=== PATIENT | male | born 1975 | race Caucasian/White ===

== ENCOUNTER 2016-12-14 03:58 | Inpatient (IN) ==
[2016-12-14] MEDS ORDERED: *HR* HYDROmorphone (PF) 1 MG/ML SYRINGE ONE (04:23)
[2016-12-14] MEDS ORDERED: 0.9 % Sodium Chloride 2,000 ML ONE (04:23)
[2016-12-14] MEDS ORDERED: Ondansetron 4 MG/2 ML VIAL ONE (04:23)
[2016-12-14] MEDS ORDERED: Ondansetron 4 MG/2 ML VIAL IVP ONE (04:30)
[2016-12-14] MEDS ORDERED: 0.9 % Sodium Chloride 1,000 ML IVC ONE (04:30)
[2016-12-14] MEDS ORDERED: *HR* HYDROmorphone (PF) 1 MG/ML SYRINGE IVP ONE (04:30)
--- NOTE | 2016-12-14 05:04 | Emergency Department Note ---
Disposition Clinical Impression: Small bowel obstruction Disposition: Admitted As Inpatient Condition: Good Referrals: NO,PCP [Primary Care Provider] - Time of Disposition: 06:42 Abdominal Pain HPI - General Stated Complaint: general Time Seen by Provider: 12/14/16 05:00 Source: patient Mode of arrival: ambulatory Limitations: no limitations Nursing Notes Reviewed: Yes Vital Signs Reviewed: Yes - History of Present Illness HPI Narrative: 41-year-old male with past medical history of gastric cancer status post resection, radiation, and the chemotherapy 8 years ago presents with 2 weeks of worsening nausea, bilious emesis, and inability to eat. This is associated with no bowel movement for the past week, subjective fever and chills. He has diffuse abdominal pain. He is concerned that he may have a recurrence of his cancer or a bowel obstruction. He denies any medication change, sick contacts, travel or immobilization. He denies any chest pain, shortness of breath, change in urination. He denies any rashes or edema. - Related Data Home Medications Medication Instructions Recorded Confirmed No Known Home Drugs 12/14/16 12/14/16 Allergies Allergy/AdvReac Type Severity Reaction Status Date / Time No Known Allergies Allergy Verified 12/14/16 06:48 All systems ED: reviewed and negative except as stated. Abdominal Pain PMH - Past Medical History Medical history: Reports: cancer Physical Exam - Head Head exam: atraumatic, normocephalic, normal inspection - Eye Eye exam: Present: normal appearance, PERRL, EOMI - ENT ENT exam: normal exam, normal oropharynx, mucous membranes moist - Neck Neck exam: Present: normal inspection, full ROM, trachea midline - Chest Chest inspection: Present: normal inspection, symmetric chest wall rise - Respiratory Respiratory exam: Clear to auscultation bilaterally without wheezes rales or rhonchi Cardiovascular Cardiovascular exam: Present: regular rate, normal rhythm, normal heart sounds - Abdominal Exam Cachectic with mild diffuse tenderness. Abdomen is not rigid. There is no rebound tenderness - Extremities Exam Extremities exam: Present: normal inspection, full ROM - Back Exam Back exam: Present: normal inspection, full ROM. Absent: tenderness, CVA tenderness (R), CVA tenderness (L) - Neurological Exam Neurological exam: Present: alert, oriented X3, CN II-XII intact - Psychiatric Psychiatric exam: Present: normal affect, normal mood - Skin Skin exam: Present: warm, dry, intact, normal color - General General appearance: cachectic Course - Reevaluation(s) Reevaluation #1: Patient has renal dysfunction with creatinine of 2.4. Patient has no prior history of renal dysfunction. He has not had any emesis in the department. CT scan shows distended small bowel consistent with proximal small bowel obstruction. Patient states that he would like to be admitted here rather than [facility]. Case was discussed with surgeon distributed generation project manager, Dr. Alonso. He will see patient in consult and requests hospitalist admission. No NG tube placed at this time, patient will need one if he begins vomiting. Time: 06:41 Reevaluation #2: Patient accepted by Dr. Do. He requests NG tube prior to admission. Time: 06:59 Abdominal Pain - Lab Data Result diagrams: 12/14/16 04:30 12/14/16 04:30 Lab Results 12/14/16 12/14/16 Range/Units 04:30 04:30 WBC 13.5 H (4.3-11.1) K/mcL RBC 5.68 H (4.19-5.50) M/mcL Hgb 16.7 (12.9-16.9) g/dL Hct 48.9 (37.5-50.1) % MCV 86.1 (83.0-100.0) fL MCH 29.4 (28.0-33.3) pg MCHC 34.2 (31.6-35.5) g/dL RDW 14.0 (11.5-14.5) % Plt Count 288 (140-400) K/mcL MPV 11.1 (9.4-12.4) fL Immature Gran % 0.3 (0-4) % Seg Neutrophils % 76.2 % Lymphocytes % 10.5 % Monocytes % 12.5 % Eosinophils % 0.1 % Basophils % 0.4 % Neutrophils # 10.3 H (1.6-8.9) K/mcL Lymphocytes # 1.4 (0.6-4.6) K/mcL Monocytes # 1.7 H (0.0-1.3) K/mcL Eosinophils # 0.0 (0.0-0.6) K/mcL Basophils # 0.1 (0.0-0.2) K/mcL Sodium 137 (136-145) mEq/L Potassium 4.4 (3.5-4.5) mEq/L Chloride 91 L (98-109) mEq/L Carbon Dioxide 21 (19-29) mEq/L BUN 64 H (8-26) mg/dL Creatinine 2.38 H (0.72-1.25) mg/dL Est GFR ( Amer) 37 L (> 60) Est GFR (Non-Af Amer) 30 L (> 60) BUN/Creatinine Ratio 27 H (6-26) Glucose 164 H (70-99) mg/dL Calculated Osmolality 306 H (280-300) Calcium 10.5 (8.6-10.8) mg/dL Total Bilirubin 0.6 (0.2-1.2) mg/dL Direct Bilirubin 0.3 (0.0-0.5) mg/dL Indirect Bilirubin 0.3 (0.0-1.2) mg/dL AST 12 (5-34) Units/L ALT < 6 (0-55) Units/L Alkaline Phosphatase 124 (38-126) Units/L Serum Total Protein 8.8 H (6.0-8.3) g/dL Albumin 4.6 (3.5-5.0) g/dL Globulin 4.2 H (2.4-3.5) g/dL Albumin/Globulin Ratio 1.1 (1.1-2.2) Lipase 12 (8-78) Units/L Attestation Statement - Attestation Attestation: I examined this patient and my medical decision-making was reviewed with the Resident Physician. I agree with the documented findings, disposition and treatment plan as described except to the extent set forth below. Cachectic pt w gastric cancer. Scaphoiod, tender abdomen, bitemporal wasting. Has hiccups, has had dark brown emesis that he thinks resembles blood. No BM in 5-6 days. Looks ill, dry. Work up initiated by Dr. Bedoya is appropriate.
[2016-12-14 05:10] LABS: Basophils # 0.1 K/mcL (0.0-0.2); Basophils % 0.4 %; Eosinophils % 0.1 %; Hematocrit 48.9 % (37.5-50.1); Hemoglobin 16.7 g/dL (12.9-16.9); Immature Granulocytes % 0.3 % (0-4); Lymphocytes # 1.4 K/mcL (0.6-4.6); Lymphocytes % 10.5 %; Mean Corpuscular HGB Conc 34.2 g/dL (31.6-35.5); Mean Corpuscular Hemoglobin 29.4 pg (28.0-33.3); Mean Corpuscular Volume 86.1 fL (83.0-100.0); Mean Platelet Volume 11.1 fL (9.4-12.4); Monocytes # 1.7 K/mcL (0.0-1.3); Monocytes % 12.5 %; Neutrophils # 10.3 K/mcL (1.6-8.9); Platelet Count 288 K/mcL (140-400); Red Blood Count 5.68 M/mcL (4.19-5.50); Segmented Neutrophils % 76.2 %
[2016-12-14 05:58] LABS: Alanine Aminotransferase < 6 Units/L (0-55); Albumin 4.6 g/dL (3.5-5.0); Albumin/Globulin Ratio 1.1 (1.1-2.2); Alkaline Phosphatase 124 Units/L (38-126); Aspartate Amino Transferase 12 Units/L (5-34); BUN/Creatinine Ratio 27 (6-26); Bilirubin,Direct 0.3 mg/dL (0.0-0.5); Bilirubin,Indirect 0.3 mg/dL (0.0-1.2); Bilirubin,Total 0.6 mg/dL (0.2-1.2); Blood Urea Nitrogen 64 mg/dL (8-26); Calcium 10.5 mg/dL (8.6-10.8); Carbon Dioxide 21 mEq/L (19-29); Chloride 91 mEq/L (98-109); Globulin 4.2 g/dL (2.4-3.5); Glucose 164 mg/dL (70-99); Lipase 12 Units/L (8-78); Osmolality,Calculated 306 (280-300); Potassium 4.4 mEq/L (3.5-4.5); Sodium 137 mEq/L (136-145); Total Protein 8.8 g/dL (6.0-8.3); eGFR For African Americans 37 (> 60); eGFR For Non-African Americans 30 (> 60)
[2016-12-14] MEDS ORDERED: Ondansetron 4 MG/2 ML VIAL IVP STA (06:27)
[2016-12-14] MEDS ORDERED: 0.9 % Sodium Chloride 1,000 ML IVC SCH (06:45)
[2016-12-14] MEDS ORDERED: Lidocaine Viscous Oral Soln 15 ML SOLUTION MM STA (06:57)
[2016-12-14] MEDS ORDERED: Lidocaine Jelly 11 ml Syringe TP ONE (07:00)
[2016-12-14] MEDS ORDERED: Naloxone 0.4 MG/ML INJ IVP PRN (08:57)
[2016-12-14] MEDS ORDERED: *HR* Morphine 2 MG/ML SYRINGE IVP PRN (08:57)
[2016-12-14] MEDS ORDERED: Ondansetron 4 MG/2 ML VIAL IVP PRN (08:57)
[2016-12-14] MEDS ORDERED: D5% in Water 1,000 ML IV PRN (09:03)
[2016-12-14] MEDS ORDERED: *HR* Dextrose 50 % in Water (Syg) 50 ML SYRINGE IVP PRN (09:03)
[2016-12-14] MEDS ORDERED: Dextrose Gel 15 GM PO PRN ×2 (09:03)
--- NOTE | 2016-12-14 09:09 | Internal Med History&Physical ---
Date of Encounter: 12/14/16 Time of Encounter: 08:30 Internal Medicine - H&P: HPI Chief complaint: Abdominal pain, nausea, vomiting x 2 weeks. Admitted From: Emergency Dept Plans for Post Hospital Care: Home History of present illness: Mr. Chand is a 41 year old male with medical history significant for gastric cancer status post partial gastrectomy, chemoradiation, presents with 2 weeks of progressive nausea, billious vomiting, inability to feed and diffuse abdominal pain. No fever or chills. His last bowel movement was 5 days ago, stool was of firm consistency. He pass flatus yesterday. No hematemsesis, no melena or hematochezia. He has had chronic intermittent weight loss the past 3 year since surgery. He has had chronic intermittent nausea and vomiting with inability to eat, occuring 3-6 times yearly the past 3 years. He now has erosion of his teeth from vomiting. No history of laparoscopic adhension release. No sick contacts, no recent travel, chest pain, shortness of breath, no new onset -urinary or neurological symptoms, no rash, no sore throat, no glandular enlargement, no leg swelling, leg cramps. He is concerned about recurrence of his cancer. Dr Alonso (surgeon) has been consulted by the ED physician. He will see patient in consult. N-G tube has been placed, but not connected to wall suction for now. He is FULL CODE as per discussion, he nominates his brother, Edward Chand as his NOK/POA. ROS: A 10-point ROS was performed, positives and relevant negatives are detailed , system-symptom not mentioned assumed negative unless otherwise stated. Family history: Father: stomach cancer, mother: DM2, HTN, sister: HTN: brother: DM2. O/E: Not in distress, not ill or toxic looking, cachectic. HEENT: Not pale, anicteric, afebrile, acyanotic. Trachea is central. Erosion of teeth, NG tube in the right nostril, mucoid material in the tube. Chest: Clinically clear Heart: RRR, HS1.2 no murmur Abdomen: Midline laparotomy scar, non-distended, soft, tender in the left upper quadrant and epigastrium, to a less extent in the LLQ, no masses. BS+ : no flank tenderness, no CVA tenderness, no suprapubic tenderness. DISBURSING OFFICER: aao x 3, no focal neurological deficits. Psychiatry: mood is good, affect is congruent, speech is normal, thought process is logical and goal-directed. Extremities: no pedal edema, normal pedal pulse, no calf tenderness. Lab Results 12/14/16 12/14/16 Range/Units 04:30 04:30 WBC 13.5 H (4.3-11.1) K/mcL RBC 5.68 H (4.19-5.50) M/mcL Hgb 16.7 (12.9-16.9) g/dL Hct 48.9 (37.5-50.1) % MCV 86.1 (83.0-100.0) fL MCH 29.4 (28.0-33.3) pg MCHC 34.2 (31.6-35.5) g/dL RDW 14.0 (11.5-14.5) % Plt Count 288 (140-400) K/mcL MPV 11.1 (9.4-12.4) fL Immature Gran % 0.3 (0-4) % Seg Neutrophils % 76.2 % Lymphocytes % 10.5 % Monocytes % 12.5 % Eosinophils % 0.1 % Basophils % 0.4 % Neutrophils # 10.3 H (1.6-8.9) K/mcL Lymphocytes # 1.4 (0.6-4.6) K/mcL Monocytes # 1.7 H (0.0-1.3) K/mcL Eosinophils # 0.0 (0.0-0.6) K/mcL Basophils # 0.1 (0.0-0.2) K/mcL Sodium 137 (136-145) mEq/L Potassium 4.4 (3.5-4.5) mEq/L Chloride 91 L (98-109) mEq/L Carbon Dioxide 21 (19-29) mEq/L BUN 64 H (8-26) mg/dL Creatinine 2.38 H (0.72-1.25) mg/dL Est GFR ( Amer) 37 L (> 60) Est GFR (Non-Af Amer) 30 L (> 60) BUN/Creatinine Ratio 27 H (6-26) Glucose 164 H (70-99) mg/dL Calculated Osmolality 306 H (280-300) Calcium 10.5 (8.6-10.8) mg/dL Total Bilirubin 0.6 (0.2-1.2) mg/dL Direct Bilirubin 0.3 (0.0-0.5) mg/dL Indirect Bilirubin 0.3 (0.0-1.2) mg/dL AST 12 (5-34) Units/L ALT < 6 (0-55) Units/L Alkaline Phosphatase 124 (38-126) Units/L Serum Total Protein 8.8 H (6.0-8.3) g/dL Albumin 4.6 (3.5-5.0) g/dL Globulin 4.2 H (2.4-3.5) g/dL Albumin/Globulin Ratio 1.1 (1.1-2.2) Lipase 12 (8-78) Units/L KUB: upper small bowel dilatation CT abdomen: duodenal and upper jejunal dilation. No distinct transition point. Likely due to adhesions. Punctate non-obstruction right renal calculi. 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 Conservative care for now, if hit fails, he may benefit from laparascopic adhensionlysis Though there is an obvious somatic cause for his vomiting, I worry that there could be also underlying psychosomatization related to loss of stomach. In view of loss of weight, obtain PT/OT evaluation to evaluation ambulation and gait. I discussed my assessment with the patient, she verbalized understanding and is agreeable to admission. Patient is high risk due to SBO and acute renal failure. Past Med Surg Social Fam HX - Past Medical History Medical history: cancer Internal Medicine - H&P: Meds No Known Home Drugs 12/14/16 [History] Allergies No Known Allergies Allergy (Verified 12/14/16 06:48) All Systems PM: A 10-system review of systems was performed and is negative for pertinent findings except as documented above in the HPI. - Constitutional Vitals: Temp Pulse Resp BP Pulse Ox 98.0 F 87 16 154/101 99 12/14/16 08:45 12/14/16 08:45 12/14/16 08:45 12/14/16 08:45 12/14/16 08:45 Internal Med - H&P Results - Labs CBC & Chem 7: 12/14/16 04:30 12/14/16 04:30 - Impressions ITS Impressions KUB X-Ray 12/14/16 07:29 IMPRESSION: Nasogastric tube remains intrathoracic. Recommend advancement approximately 14 cm and repeat radiograph to assess positioning. Dilated left upper quadrant small bowel, compatible with patient's history of obstruction. Results were called by the radiology call center. D/ / Alonso Monae MD / Alonso Monae MD Interpreting Provider: Alonso Monae MD
[2016-12-14 09:21] LABS: Magnesium 3.2 mg/dL (1.6-2.6); Phosphorous 6.5 mg/dL (2.3-4.7)
[2016-12-14] MEDS: Ringers Solution, Lactated 1,000 ML IVC SCH ×2 (11:44→22:30)
--- NOTE | 2016-12-14 12:23 | General Surgery Consult Note ---
Date of Encounter: 12/14/16 Time of Encounter: 11:40 Assessment and Plan (1) Small bowel obstruction Current Visit: Yes Status: Acute Small bowel follow through demonstrates no evidence of small bowel obstruction or ileus. Contrast reaches the colon within 30 minutes. The patient reported having a bowel movement after the dye was given through his NG tube. Advance the patient's diet as tolerated. Surgery will sign off at this time, thank you for involving us in this patient' s care, please feel free to contact us with any questions. History of Present Illness Consult date: 12/14/16 Reason for consult: other (Possible SBO) Requesting physician: Pineda Mccray History of present illness: This is a 41 year old male with PMH significant for previous gastric cancer status post partial gastrectomy, chemotherapy, and radiation 8 years ago. He presents with 2 weeks of nausea and vomiting that has progressed to becoming bilious. He states his last meal was approximately one week ago, but is not sure at this point. He reports having a bowel movement after small bowel follow- through imagining was performed today. He reports that he feels slightly improved after having a bowel movement. He denies any nausea at this time. He reports having similar episodes to his current symptoms several times per year. He has had unintentional weight loss over the pass 3 years, but is uncertain how much weight he has lost. Small bowel follow-through demonstrated no evidence of small bowel obstruction or ileus. Contrast was able to reach the colon within 30 minutes. Past Med Surg Social Fam HX - Past Medical History Medical history: cancer Psychiatric history: no psych history - Past Surgical History Surgical History: cholecystectomy, other (partial gastrectomy) - Social History Smoking Status: Current every day smoker Packs per day: 0.5-1 Smokeless Tobacco Status: No Alcohol use: rarely Drug use: none - Family History Father Hx Family Cardiac Disorders: Yes (hypertension) Hx Family Cancer: Yes (gastric) Medications and Allergies No Known Home Drugs 12/14/16 [History] Allergies No Known Allergies Allergy (Verified 12/14/16 06:48) Review of Systems All systems PM: A 10-system review of systems was performed and is negative for pertinent findings except as documented above in the HPI. - Constitutional anorexia, chills, fatigue, weight loss, no fever(s) - EENT Nose, mouth and throat: other (teeth breakdown) - Cardiovascular no chest pain, no dyspnea, no leg edema - Respiratory no cough, no hemoptysis - Gastrointestinal abdominal pain, nausea, vomiting, no melena - Genitourinary no dysuria - Integumentary no rash, no sores - Neurological no loss of vision General Surgery Exam Initial Vital Signs Resp BP 0 0/0 12/14/16 08:37 12/14/16 08:37 - General physical appearance no distress, cachectic - Eyes normal ocular movement - ENT normal mucosa, poor assisted - Neck trachea midline - Respiratory normal respiratory effort, clear to auscultation - Cardiovascular Cardiovascular exam: Present: tachycardia - Abdomen Abdomen general surgery: Present: bowel sounds present, soft, tender (diffuse) - Integumentary Integumentary general surgery: Present: warm and dry, other (well healed surgical scars present over the midline of the abdomen.) - Neurologic Present: CN 2-12 grossly intact - Musculoskeletal Present: normal posture - Psychiatric Psychiatric general surgery: Present: appropriate, oriented to person, oriented to place, oriented to time, speech is normal, memory intact Exam Initial Vital Signs Resp BP 0 0/0 12/14/16 08:37 12/14/16 08:37 Results - Labs 12/14/16 04:30 12/14/16 04:30 Abnormal lab results WBC 13.5 K/mcL (4.3-11.1) H 12/14/16 04:30 RBC 5.68 M/mcL (4.19-5.50) H 12/14/16 04:30 Neutrophils # 10.3 K/mcL (1.6-8.9) H 12/14/16 04:30 Monocytes # 1.7 K/mcL (0.0-1.3) H 12/14/16 04:30 Chloride 91 mEq/L (98-109) L 12/14/16 04:30 BUN 64 mg/dL (8-26) H 12/14/16 04:30 Creatinine 2.38 mg/dL (0.72-1.25) H 12/14/16 04:30 Est GFR ( Amer) 37 (> 60) L 12/14/16 04:30 Est GFR (Non-Af Amer) 30 (> 60) L 12/14/16 04:30 BUN/Creatinine Ratio 27 (6-26) H 12/14/16 04:30 Glucose 164 mg/dL (70-99) H 12/14/16 04:30 Calculated Osmolality 306 (280-300) H 12/14/16 04:30 Phosphorus 6.5 mg/dL (2.3-4.7) H 12/14/16 04:30 Magnesium 3.2 mg/dL (1.6-2.6) H 12/14/16 04:30 Serum Total Protein 8.8 g/dL (6.0-8.3) H 12/14/16 04:30 Globulin 4.2 g/dL (2.4-3.5) H 12/14/16 04:30 All other labs normal. Consult Discharge Plan - Plan Referrals: NO,PCP [Primary Care Provider] - - Attending Attestation I examined this patient and my medical decision-making was reviewed with the OUTSIDE MACHINIST SUPERVISOR/PA/Advanced Practice Nurse/Resident Physician. I agree with the documented findings, disposition and treatment plan as described except to the extent set forth below.
[2016-12-14] MEDS: Pantoprazole 40 MG VIAL IVP SCH (13:29)
[2016-12-14] MEDS: *HR* Heparin 5,000 UNIT/ML VIAL SQ SCH (18:14)
[2016-12-15] MEDS: Ringers Solution, Lactated 1,000 ML IVC SCH ×2 (04:10→09:01)
[2016-12-15 05:15] LABS: Basophils # 0.1 K/mcL (0.0-0.2); Basophils % 0.9 %; Eosinophils # 0.3 K/mcL (0.0-0.6); Eosinophils % 5.2 %; Hematocrit 35.8 % (37.5-50.1); Hemoglobin 12.1 g/dL (12.9-16.9); Immature Granulocytes % 0.2 % (0-4); Lymphocytes # 2.3 K/mcL (0.6-4.6); Lymphocytes % 39.8 %; Mean Corpuscular HGB Conc 33.8 g/dL (31.6-35.5); Mean Corpuscular Hemoglobin 29.5 pg (28.0-33.3); Mean Corpuscular Volume 87.3 fL (83.0-100.0); Mean Platelet Volume 11.2 fL (9.4-12.4); Monocytes % 17.9 %; Neutrophils # 2.1 K/mcL (1.6-8.9); Platelet Count 185 K/mcL (140-400); Red Cell Distribution Width 13.9 % (11.5-14.5)
[2016-12-15 05:31] LABS: BUN/Creatinine Ratio 33 (6-26); Blood Urea Nitrogen 35 mg/dL (8-26); Calcium 8.6 mg/dL (8.6-10.8); Carbon Dioxide 26 mEq/L (19-29); Chloride 101 mEq/L (98-109); Glucose 77 mg/dL (70-99); Osmolality,Calculated 289 (280-300); Potassium 3.9 mEq/L (3.5-4.5); Sodium 136 mEq/L (136-145); eGFR For African Americans > 60 (> 60); eGFR For Non-African Americans > 60 (> 60)
[2016-12-15] MEDS: *HR* Heparin 5,000 UNIT/ML VIAL SQ SCH (06:02)
--- NOTE | 2016-12-15 08:37 | Internal Med Progress Note ---
<Crispin Weeks - Last Filed: 12/15/16 09:53> Date of Encounter: 12/15/16 Time of Encounter: 08:32 - Assessment and plan (1) Nausea & vomiting Current Visit: Yes Status: Acute Assessment and plan: patient reports epsisodes of severe nausea and vomiting that occurs approximately every 2-3 months. Denies marijuana use. SBFT shows transit time of 30 minutes so this is not a SBO. May be secondary to gastroparesis? gastritis? I believe patient should get an EGD to evaluate given his history. I spoke with Dr. Alonso over the phone. we will set him up for follow up as outpatient for EGD. Qualifiers: Vomiting type: unspecified Qualified Code(s): R11.2 - Nausea with vomiting , unspecified (2) Early satiety Current Visit: Yes Status: Acute (3) Acute kidney injury Current Visit: Yes Status: Acute Assessment and plan: resolved. continue IV fluids (4) Dehydration Current Visit: Yes Status: Acute Assessment and plan: continue IV fluids until patient able to tolerate a full (5) Underweight Current Visit: Yes Status: Acute Assessment and plan: will add ensure to meals. (6) History of gastric cancer Current Visit: Yes Status: Acute (7) DVT prophylaxis Current Visit: Yes Status: Acute Assessment and plan: SQ heparin. - Subjective Interval history: Mr. Chand is a 1 y.o. male with pmh of gastric cancer that was diagnosed at the age of 23. He would undergo a partial gastredctomy, a gastrojejunostmy and chemtherapy and radiation. He states that he has had no endoscopy since that time. He states that he has had early satiety since that time. However he states that it has become more pronounced and that he can no longer even finish half of a sandwich. He states he has had weight loss. He is unsure of how much but states that his clothes do not fit him as well as they used to. He admits to night sweats for the past 3 months. He denies any dysphagia or odynophagia . Patient states that his Nausea and emesis are resolved and now he is hungry. He denies any abdominal pain at this time. He has no further complaints or concerns . - Constitutional Vitals: Temp Pulse Resp BP Pulse Ox 98.3 F 50 14 110/69 97 12/15/16 07:54 12/15/16 07:54 12/15/16 07:54 12/15/16 07:54 12/15/16 07:54 General appearance: Present: A&O X 3, pleasant, no acute distress, underweight - Head Head exam: Present: atraumatic, normal inspection, normocephalic - Eye Eye exam: Present: PERRL, conjuntiva pink, sclera anicteric Pupils: Present: PERRL - Neck Neck exam general surgery: Present: supple, trachea midline. Absent: lymphadenopathy - Respiratory Respiratory exam: Present: CTAB. Absent: accessory muscle use, rales, rhonchi, wheezes - Cardiovascular Cardiovascular exam: Present: RRR, +S1, +S2. Absent: diastolic murmur, gallop, rubs, systolic murmur - GI/Abdominal GI/Abdominal exam: Present: normal bowel sounds, soft, no peritoneal signs. Absent: distended, tenderness - Extremities Exam Extremities exam: Present: warm, radial pulses palpable and symetrical. Absent : calf tenderness, cyanotic, pedal edema - Skin Skin exam: Present: dry, intact Internal Medicine: Result - Labs CBC & Chem 7: 12/15/16 04:57 12/15/16 04:57 Labs: Short CBC 12/15/16 Range/Units 04:57 WBC 5.8 D (4.3-11.1) K/mcL Hgb 12.1 L D (12.9-16.9) g/dL Hct 35.8 L (37.5-50.1) % Plt Count 185 (140-400) K/mcL Neutrophils # 2.1 (1.6-8.9) K/mcL BMP 12/15/16 04:57 Sodium 136 Potassium 3.9 Chloride 101 Carbon Dioxide 26 BUN 35 H D Creatinine 1.06 D Glucose 77 Calcium 8.6 D Consult Discharge Plan - Plan Referrals: NO,PCP [Primary Care Provider] - Prescriptions: Mirtazapine [Remeron] 15 mg PO HS #30 tablet Omeprazole 20 mg PO DAILY 30 Days <Andrzej Hicks - Last Filed: 12/15/16 15:16> Date of Encounter: 12/15/16 - Assessment and plan (1) Acute kidney injury Current Visit: Yes Status: Acute (2) DVT prophylaxis Current Visit: Yes Status: Acute (3) Dehydration Current Visit: Yes Status: Acute (4) History of gastric cancer Current Visit: Yes Status: Acute (5) Nausea & vomiting Current Visit: Yes Status: Acute Qualifiers: Vomiting type: unspecified Qualified Code(s): R11.2 - Nausea with vomiting , unspecified (6) Small bowel obstruction Current Visit: Yes Status: Acute - Constitutional Vitals: Temp Pulse Resp BP Pulse Ox 97.4 F L 53 15 115/67 99 12/15/16 11:28 12/15/16 11:28 12/15/16 11:28 12/15/16 11:28 12/15/16 11:28 Internal Medicine: Result - Labs CBC & Chem 7: 12/15/16 04:57 12/15/16 04:57 Labs: Short CBC 12/15/16 Range/Units 04:57 WBC 5.8 D (4.3-11.1) K/mcL Hgb 12.1 L D (12.9-16.9) g/dL Hct 35.8 L (37.5-50.1) % Plt Count 185 (140-400) K/mcL Neutrophils # 2.1 (1.6-8.9) K/mcL BMP 12/15/16 04:57 Sodium 136 Potassium 3.9 Chloride 101 Carbon Dioxide 26 BUN 35 H D Creatinine 1.06 D Glucose 77 Calcium 8.6 D - Attending Attestation I examined this patient and my medical decision-making was reviewed with the FINANCIAL DIRECTOR/PA/Advanced Practice Nurse/Resident Physician. I agree with the documented findings, disposition and treatment plan as described except to the extent set forth below. Agree with Dr. Weeks. Outpatient follow up for possible EGD. D/W home today.
[2016-12-15] MEDS: Pantoprazole 40 MG VIAL IVP SCH (08:58)
--- NOTE | 2016-12-15 10:15 | Consult Note ---
Date of Encounter: 12/14/16 Time of Encounter: 15:45 Assessment & Recommendation (1) Mood disorder due to a general medical condition Current visit: Yes Status: Acute Assessment & Recommendation: 1. The patient to outpatient mental health's services for counseling and medication management. 2. I recommend starting the patient on mirtazapine 15 mg at bedtime to improve his appetite and as an antidepressant. Thank you for consultation. History of Present Illness Patient: new to practice Requesting Physician: Andrzej Hicks Reason for consult: Depression/somatization History of present illness: Mr. Chand is a 41 year old male admitted to medical for treatment evaluation of chronic nausea and vomiting following partial hysterectomy that was done 8 years ago to remove stomach cancer. Psychiatric consultation was requested for evaluation of depression and possible somatization. Patient denies any past psych history or treatment for depression he did not endorse any depressive symptoms he is focused on his chronic gastrointestinal problem namely nausea and vomiting and being underweight. Patient told me he used to be a furniture manager at [employer] and he has been on disability for several years and limited in his activities but denied any depression or hopelessness he was smiling and send those questions.. He was agreeable to explore counseling and medication to improve his functioning but he was concerned about insurance and his inability to afford treatment. CC: Andrzej Hicks Past Med Surg Social Fam HX - Past Medical History Medical history: cancer - Past Psychiatric History Psychiatric history: Reports: no psych history - Past Surgical History Surgical History: cholecystectomy, other (partial gastrectomy) - Social History Smoking Status: Current every day smoker Smokeless Tobacco Status: No Alcohol use: rarely Drug use: none - Family History Father Hx Family Cardiac Disorders: Yes (hypertension) Hx Family Cancer: Yes (gastric) Medications & Allergies No Known Home Drugs 12/14/16 [History] Allergies No Known Allergies Allergy (Verified 12/14/16 06:48) Mental Status Exam Level of alertness: Alert Patient appearance: Disheveled, Malodorous, Mal-nourished, Thin Behavior: calm, cooperative Psychomotor activity: Normal Eye contact: Maintains Eye Contact Mood description: Euthymic/stable Affect description: congruent with mood, full range Speech pattern: Normal rate, Normal rhythm, Normal tone Speech volume: Normal Thought process: Linear, Goal Oriented Thought content: No Suicidal ideation, No Homicidal ideation, No Overt delusions Perceptual disturbances: No Auditory hallucinations, No Visual hallucinations Attention span: Capable of Focused Attention Memory description: Grossly Intact Patient reliability: Reliable Historian Intelligence estimate: Average Judgment: Limited Insight: Partial Results - Vital Signs Vital signs: Temp Pulse Resp BP Pulse Ox 98.3 F 50 14 110/69 97 12/15/16 07:54 12/15/16 07:54 12/15/16 07:54 12/15/16 07:54 12/15/16 07:54 - Labs Labs: Laboratory Last Values WBC 5.8 K/mcL (4.3-11.1) D 12/15/16 04:57 RBC 4.10 M/mcL (4.19-5.50) L 12/15/16 04:57 Hgb 12.1 g/dL (12.9-16.9) L D 12/15/16 04:57 Hct 35.8 % (37.5-50.1) L 12/15/16 04:57 MCV 87.3 fL (83.0-100.0) 12/15/16 04:57 MCH 29.5 pg (28.0-33.3) 12/15/16 04:57 MCHC 33.8 g/dL (31.6-35.5) 12/15/16 04:57 RDW 13.9 % (11.5-14.5) 12/15/16 04:57 Plt Count 185 K/mcL (140-400) 12/15/16 04:57 MPV 11.2 fL (9.4-12.4) 12/15/16 04:57 Immature Gran % 0.2 % (0-4) 12/15/16 04:57 Seg Neutrophils % 36.0 % 12/15/16 04:57 Lymphocytes % 39.8 % 12/15/16 04:57 Monocytes % 17.9 % 12/15/16 04:57 Eosinophils % 5.2 % 12/15/16 04:57 Basophils % 0.9 % 12/15/16 04:57 Neutrophils # 2.1 K/mcL (1.6-8.9) 12/15/16 04:57 Lymphocytes # 2.3 K/mcL (0.6-4.6) 12/15/16 04:57 Monocytes # 1.0 K/mcL (0.0-1.3) 12/15/16 04:57 Eosinophils # 0.3 K/mcL (0.0-0.6) 12/15/16 04:57 Basophils # 0.1 K/mcL (0.0-0.2) 12/15/16 04:57 Sodium 136 mEq/L (136-145) 12/15/16 04:57 Potassium 3.9 mEq/L (3.5-4.5) 12/15/16 04:57 Chloride 101 mEq/L (98-109) 12/15/16 04:57 Carbon Dioxide 26 mEq/L (19-29) 12/15/16 04:57 BUN 35 mg/dL (8-26) H D 12/15/16 04:57 Creatinine 1.06 mg/dL (0.72-1.25) D 12/15/16 04:57 Est GFR ( Amer) > 60 (> 60) 12/15/16 04:57 Est GFR (Non-Af Amer) > 60 (> 60) 12/15/16 04:57 BUN/Creatinine Ratio 33 (6-26) H 12/15/16 04:57 Glucose 77 mg/dL (70-99) 12/15/16 04:57 POC Glucose 120 (58-89) H 12/14/16 11:38 Calculated Osmolality 289 (280-300) 12/15/16 04:57 Calcium 8.6 mg/dL (8.6-10.8) D 12/15/16 04:57 Phosphorus 6.5 mg/dL (2.3-4.7) H 12/14/16 04:30 Magnesium 3.2 mg/dL (1.6-2.6) H 12/14/16 04:30 Total Bilirubin 0.6 mg/dL (0.2-1.2) 12/14/16 04:30 Direct Bilirubin 0.3 mg/dL (0.0-0.5) 12/14/16 04:30 Indirect Bilirubin 0.3 mg/dL (0.0-1.2) 12/14/16 04:30 AST 12 Units/L (5-34) 12/14/16 04:30 ALT < 6 Units/L (0-55) 12/14/16 04:30 Alkaline Phosphatase 124 Units/L (38-126) 12/14/16 04:30 Serum Total Protein 8.8 g/dL (6.0-8.3) H 12/14/16 04:30 Albumin 4.6 g/dL (3.5-5.0) 12/14/16 04:30 Globulin 4.2 g/dL (2.4-3.5) H 12/14/16 04:30 Albumin/Globulin Ratio 1.1 (1.1-2.2) 12/14/16 04:30 Lipase 12 Units/L (8-78) 12/14/16 04:30 Consult Discharge Plan - Plan Referrals: NO,PCP [Primary Care Provider] -
[2016-12-15 11:32] VITALS: BP 115/67
--- NOTE | 2016-12-15 13:57 | Event Note ---
Date of Encounter: 12/15/16 Time of Encounter: 13:54 Patient was seen yesterday 12/14/16 due to concerns for a SBO. His testing revealed no evidence of SBO. However, the patient does have new onset early satiety, abdominal discomfort and a history of gastric cancer. His gastric cancer was 8 years ago. He states that he has not has a follow-up EGD since his gastric cancer was resected. Risks, benefits, alternatives and expected outcomes have been discussed with the patient and he is in agreement to proceed with an EGD as an outpatient. Notified [facility] schedule to work on scheduling with [facility] anesthesia.
--- NOTE | 2016-12-15 15:09 | Discharge Summary ---
Date of Encounter: 12/15/16 Time of Encounter: 15:07 - Discharge Diagnosis (1) Acute kidney injury Priority: Primary Status: Acute (2) DVT prophylaxis Priority: Secondary Status: Acute (3) Dehydration Priority: Secondary Status: Acute (4) History of gastric cancer Priority: Secondary Status: Acute (5) Nausea & vomiting Priority: Secondary Status: Acute Qualifiers: Vomiting type: unspecified Qualified Code(s): R11.2 - Nausea with vomiting , unspecified (6) Small bowel obstruction Priority: Secondary Status: Acute - Discharge Medications Prescriptions: Mirtazapine [Remeron] 15 mg PO HS #30 tablet Omeprazole 20 mg PO DAILY 30 Days Home Medications: Mirtazapine [Remeron] 15 mg PO HS #30 tablet 12/15/16 [Rx] Omeprazole 20 mg PO DAILY 30 Days 12/15/16 [Rx] Allergies/Adverse Reactions: Allergies No Known Allergies Allergy (Verified 12/14/16 06:48) Date of admission: 12/14/16 09:26 Primary care physician: PCP NO Consults: 12/14/16 09:53 Consult to Physical Therapy [CONS] Routine Comment: Evaluate, develop and implement POC OT [Consult to Occupational Therapy] [CONS] Routine Comment: Evaluate, develop and implement POC 12/14/16 11:36 Consult to Nutrition [CONS] Routine Comment: Consulting Provider: NUTRITION Reason for Dietary Consult: MST Score 12/14/16 12:50 Consult to Psychiatry [CONS] Routine Consulting Provider: Psychiatry Kasey Reason for Consult: evaluate for psychosomatitization/depression. Nausea, vomiting s/p partial gastrectomy. Call Completed: No Discharging clinician: Andrzej Hicks Anticipated date of discharge: 12/15/16 - Patient Status Disposition: Home, Self-Care Condition: Good Functional capacity at discharge: independent ambulation Overall status at discharge: patient is back to baseline - Discharge Instructions Follow Up With: NO,PCP [Primary Care Provider] - Forms: ED Satisfaction Letter - Diet and Activity Activity: increase activity as tolerated Diet: advance to your usual diet Interval History: Mr. Chand is a 41 year old male with medical history significant for gastric cancer status post partial gastrectomy, chemoradiation, presents with 2 weeks of progressive nausea, billious vomiting, inability to feed and diffuse abdominal pain. No fever or chills. His last bowel movement was 5 days ago, stool was of firm consistency. He pass flatus yesterday. No hematemsesis, no melena or hematochezia. He has had chronic intermittent weight loss the past 3 year since surgery. He has had chronic intermittent nausea and vomiting with inability to eat, occuring 3-6 times yearly the past 3 years. He now has erosion of his teeth from vomiting. No history of laparoscopic adhension release. No sick contacts, no recent travel, chest pain, shortness of breath, no new onset -urinary or neurological symptoms, no rash, no sore throat, no glandular enlargement, no leg swelling, leg cramps. He is concerned about recurrence of his cancer. Dr Alonso (surgeon) has been consulted by the ED physician. He will see patient in consult. N-G tube has been placed, but not connected to wall suction for now. He is FULL CODE as per discussion, he nominates his brother, Edward Chand as his NOK/POA. ROS: A 10-point ROS was performed, positives and relevant negatives are detailed , system-symptom not mentioned assumed negative unless otherwise stated. Family history: Father: stomach cancer, mother: DM2, HTN, sister: HTN: brother: DM2. Hospital course: Mr. Chnad is a 41 year old male. Acute kidney injury resolved. Denies marijuana use. Will start mirtazapine 15 mg at bedtime to improve his appetite and as an antidepressant. SBFT shows transit time of 30 minutes so this is not a SBO. May be secondary to gastroparesis or gastritis. I believe patient would benefit from an EGD to evaluate given his history.[facility] will set him up for follow up as outpatient for EGD. Will discharge him home today with omeprazole and mirtazapine. D/W patient. Smoking cessation was strongly recommended. Patient does not have health insurance. - Time Spent with Patient Total time spent providing and/or coordinating discharge services: Greater than 30 minutes - Constitutional Vitals: Temp Pulse Resp BP Pulse Ox 97.4 F L 53 15 115/67 99 12/15/16 11:28 12/15/16 11:28 12/15/16 11:28 12/15/16 11:28 12/15/16 11:28 General appearance: Present: A&O X 3, pleasant, no acute distress, underweight - Head Head exam: Present: atraumatic, normocephalic - Eye Eye exam: Present: PERRL, conjuntiva pink, sclera anicteric Pupils: Present: PERRL - Neck Neck exam general surgery: Present: supple, trachea midline. Absent: lymphadenopathy - Respiratory Respiratory exam: Present: CTAB. Absent: accessory muscle use, rales, rhonchi, wheezes - Cardiovascular Cardiovascular exam: Present: RRR, +S1, +S2. Absent: diastolic murmur, gallop, rubs, systolic murmur - GI/Abdominal GI/Abdominal exam: Present: normal bowel sounds, soft, no peritoneal signs. Absent: distended, tenderness - Extremities Exam Extremities exam: Present: warm, radial pulses palpable and symetrical. Absent : calf tenderness, cyanotic, pedal edema - Neurological Exam Neurological exam: Present: CN II-XII intact, oriented X3, no focal deficits. Absent: pronater drift, facial droop, speech deficit - Skin Skin exam: Present: dry, intact
[2016-12-15] MEDS ORDERED: FLU VACC QS2016-17 36MOS UP/PF 0.5 ML SYRINGE IM ONE (15:43)
== END 2016-12-15 16:10 | disposition home or self-care (01) | DRG 683 ==
LOC: 3ANU 04:37 → EMEROO 04:37 → 3ANU 08:03 → SUATTDRO 09:26
PROVIDERS: ADMIT Pediatrics; ATTEND Internal Medicine

== ENCOUNTER 2016-12-28 22:43 | Inpatient (IN) ==
[2016-12-28] MEDS ORDERED: 0.9 % Sodium Chloride 1,000 ML IVC ONE (23:00)
[2016-12-28] MEDS ORDERED: Ondansetron 4 MG/2 ML VIAL IVP ONE (23:00)
[2016-12-28 23:22] LABS: Basophils # 0.1 K/mcL (0.0-0.2); Basophils % 0.5 %; Eosinophils # 0.2 K/mcL (0.0-0.6); Eosinophils % 0.8 %; Hematocrit 47.2 % (37.5-50.1); Hemoglobin 15.2 g/dL (12.9-16.9); Immature Granulocytes % 0.5 % (0-4); Lymphocytes # 2.2 K/mcL (0.6-4.6); Lymphocytes % 10.8 %; Mean Corpuscular HGB Conc 32.2 g/dL (31.6-35.5); Mean Corpuscular Hemoglobin 28.7 pg (28.0-33.3); Mean Corpuscular Volume 89.2 fL (83.0-100.0); Mean Platelet Volume 9.5 fL (9.4-12.4); Monocytes # 1.2 K/mcL (0.0-1.3); Monocytes % 5.8 %; Neutrophils # 16.4 K/mcL (1.6-8.9); Platelet Count 344 K/mcL (140-400); Red Blood Count 5.29 M/mcL (4.19-5.50); Red Cell Distribution Width 14.7 % (11.5-14.5); Segmented Neutrophils % 81.6 %
[2016-12-28 23:39] LABS: Alanine Aminotransferase 10 Units/L (0-55); Albumin 3.9 g/dL (3.5-5.0); Alkaline Phosphatase 84 Units/L (38-126); Aspartate Amino Transferase 12 Units/L (5-34); BUN/Creatinine Ratio 15 (6-26); Bilirubin,Total 0.6 mg/dL (0.2-1.2); Blood Urea Nitrogen 19 mg/dL (8-26); Carbon Dioxide 27 mEq/L (19-29); Chloride 102 mEq/L (98-109); Glucose 137 mg/dL (70-99); Lipase 13 Units/L (8-78); Osmolality,Calculated 300 (280-300); Potassium 4.4 mEq/L (3.5-4.5); Sodium 143 mEq/L (136-145); Total Protein 7.9 g/dL (6.0-8.3); eGFR For African Americans > 60 (> 60); eGFR For Non-African Americans > 60 (> 60)
[2016-12-28] MEDS ORDERED: *HR* HYDROmorphone (PF) 1 MG/ML SYRINGE IVP ONE (23:47)
--- NOTE | 2016-12-28 23:48 | Emergency Department Note ---
Disposition Clinical Impression: Small bowel obstruction Disposition: Admitted As Inpatient Time of Disposition: 03:30 Nausea/Vomiting/Diarrhea HPI - General Chief complaint: ED Nausea/Vomiting/Diarrhea Stated complaint: Vomiting Time Seen by Provider: 12/28/16 23:00 Source: patient Mode of arrival: wheelchair Limitations: no limitations Nursing Notes Reviewed: Yes - History of Present Illness HPI Narrative: Patient presents to the ED with complaints of worsening N-V and malaise for the last 24 hours. He has a history of stomach cancer x9 years ago, with chemo and radiation in [place]. He states 2 weeks ago he did have a bowel obstruction, but it "cleared" and he weighed 96 lbs at that time. States he did start to feel better, but became worse in the last 24 hours. He is having decreased urinary output, as he is unable to keep anything down. He is feeling quite weak. His skin color is pale, and has the appearance of wasting syndrome. Pt Subjective Complaint: nausea, vomiting, abdominal pain Onset (ago): day(s) (2) Description of emesis: watery Description of Diarrhea: water Associated Abdominal Pain: Yes If pain, Location of pain: diffuse Quality: stabbing, sharp Consistency: Worsening Improves with: nothing Associated symptoms: Reports: myalgias, loss of appetite, malaise, nausea/ vomiting - Related Data Previous Rx's Medication Instructions Recorded Mirtazapine [Remeron] 15 mg PO HS #30 tablet 12/15/16 Omeprazole 20 mg PO DAILY 30 Days 12/15/16 Allergies Allergy/AdvReac Type Severity Reaction Status Date / Time No Known Allergies Allergy Verified 12/28/16 22:45 All systems ED: reviewed and negative except as stated. Constitutional: Reports: chills, weakness, weight change Eyes: Denies: eye pain, eye discharge, vision change ENT ED: Denies: ear pain, throat pain, dental pain, hearing loss, epistaxis, congestion, dysphagia Cardiovascular: Denies: chest pain, palpitations, dyspnea on exertion, edema, syncope Respiratory: Denies: cough, dyspnea, wheezes, hemoptysis, stridor Gastrointestinal: Reports: abdominal pain, nausea, vomiting. Denies: diarrhea, constipation, hematemesis, melena, hematochezia Genitourinary: Denies: urgency, dysuria, frequency, hematuria Past Medical History - Past Medical History Attestation: Yes The following information was validated with the patient. Source: patient, nursing notes reviewed Medical history: Reports: cancer Surgical history: Reports: cholecystectomy, other (partial gastrectomy) Psychiatric history: Reports: no psych history - Social History Smoking Status: Current every day smoker Smokeless Tobacco Status: No Alcohol use: Reports: rarely Drug use: Reports: none Physical Exam - General Limitations: no limitations General appearance: alert, cachectic - Head Head exam: atraumatic, normocephalic, normal inspection - Eye Eye exam: Present: normal appearance, PERRL, EOMI - ENT ENT exam: normal exam, normal oropharynx, mucous membranes moist - Neck Neck exam: Present: normal inspection, full ROM, trachea midline - Chest Chest inspection: Present: normal inspection, symmetric chest wall rise - Respiratory Respiratory exam: Present: normal lung sounds bilaterally - Cardiovascular Cardiovascular exam: Present: regular rate, normal rhythm, normal heart sounds - Abdominal Exam Abdominal exam: Present: soft, Non-Tender, tenderness, normal bowel sounds. Absent: distention, guarding, rebound, rigidity Abdominal tenderness: Present: diffuse - Extremities Exam Extremities exam: Present: normal inspection, full ROM. Absent: tenderness, pedal edema - Expanded Lower Extremity Exam Gait: not tested/not observed - Back Exam Back exam: Present: normal inspection, full ROM. Absent: tenderness - Neurological Exam Neurological exam: Present: alert, oriented X3, CN II-XII intact, reflexes normal - Psychiatric Psychiatric exam: Present: normal affect, normal mood - Skin Skin exam: Present: dry, intact, pallor Course - Consultations Consultation #1: Spoke with the hospitalist regarding need to admit patient to the hosptial. He accepted patient. Dr. Varela spoke with patient. Time: 01:03 Vital Signs Temperature 98.1 F 12/28/16 22:45 Pulse Rate 126 12/28/16 22:45 Respiratory Rate 16 12/28/16 22:45 Blood Pressure 121/68 12/28/16 22:45 O2 Sat by Pulse Oximetry 98 12/28/16 22:45 Temperature 98.1 F 12/29/16 03:49 Pulse Rate 85 12/29/16 03:49 Respiratory Rate 15 12/29/16 03:49 Blood Pressure 149/89 12/29/16 03:49 O2 Sat by Pulse Oximetry 98 12/29/16 03:49 Oxygen Delivery Oxygen Delivery Room Air Nausea/Vomiting/Diarrhea - Lab Data Result diagrams: 12/28/16 23:10 12/28/16 23:10 Lab Results 12/28/16 12/28/16 12/28/16 Range/Units 23:10 23:10 23:10 WBC 20.1 H (4.3-11.1) K/mcL RBC 5.29 (4.19-5.50) M/mcL Hgb 15.2 (12.9-16.9) g/dL Hct 47.2 (37.5-50.1) % MCV 89.2 (83.0-100.0) fL MCH 28.7 (28.0-33.3) pg MCHC 32.2 (31.6-35.5) g/dL RDW 14.7 H (11.5-14.5) % Plt Count 344 (140-400) K/mcL MPV 9.5 (9.4-12.4) fL Immature Gran % 0.5 (0-4) % Seg Neutrophils % 81.6 % Lymphocytes % 10.8 % Monocytes % 5.8 % Eosinophils % 0.8 % Basophils % 0.5 % Neutrophils # 16.4 H (1.6-8.9) K/mcL Lymphocytes # 2.2 (0.6-4.6) K/mcL Monocytes # 1.2 (0.0-1.3) K/mcL Eosinophils # 0.2 (0.0-0.6) K/mcL Basophils # 0.1 (0.0-0.2) K/mcL Sodium 143 (136-145) mEq/L Potassium 4.4 (3.5-4.5) mEq/L Chloride 102 (98-109) mEq/L Carbon Dioxide 27 (19-29) mEq/L BUN 19 (8-26) mg/dL Creatinine 1.23 (0.72-1.25) mg/dL Est GFR ( Amer) > 60 (> 60) Est GFR (Non-Af Amer) > 60 (> 60) BUN/Creatinine Ratio 15 (6-26) Glucose 137 H (70-99) mg/dL Calculated Osmolality 300 (280-300) Lactic Acid 2.4 H (0.5-2.2) mmol/L Calcium 10.0 (8.6-10.8) mg/dL Total Bilirubin 0.6 (0.2-1.2) mg/dL Direct Bilirubin (0.0-0.5) mg/dL Indirect Bilirubin (0.0-1.2) mg/dL AST 12 (5-34) Units/L ALT 10 (0-55) Units/L Alkaline Phosphatase 84 (38-126) Units/L Serum Total Protein 7.9 (6.0-8.3) g/dL Albumin 3.9 (3.5-5.0) g/dL Globulin 4.0 H (2.4-3.5) g/dL Albumin/Globulin Ratio 1.0 L (1.1-2.2) Lipase 13 (8-78) Units/L 12/28/16 Range/Units 23:13 WBC (4.3-11.1) K/mcL RBC (4.19-5.50) M/mcL Hgb (12.9-16.9) g/dL Hct (37.5-50.1) % MCV (83.0-100.0) fL MCH (28.0-33.3) pg MCHC (31.6-35.5) g/dL RDW (11.5-14.5) % Plt Count (140-400) K/mcL MPV (9.4-12.4) fL Immature Gran % (0-4) % Seg Neutrophils % % Lymphocytes % % Monocytes % % Eosinophils % % Basophils % % Neutrophils # (1.6-8.9) K/mcL Lymphocytes # (0.6-4.6) K/mcL Monocytes # (0.0-1.3) K/mcL Eosinophils # (0.0-0.6) K/mcL Basophils # (0.0-0.2) K/mcL Sodium (136-145) mEq/L Potassium (3.5-4.5) mEq/L Chloride (98-109) mEq/L Carbon Dioxide (19-29) mEq/L BUN (8-26) mg/dL Creatinine (0.72-1.25) mg/dL Est GFR ( Amer) (> 60) Est GFR (Non-Af Amer) (> 60) BUN/Creatinine Ratio (6-26) Glucose (70-99) mg/dL Calculated Osmolality (280-300) Lactic Acid (0.5-2.2) mmol/L Calcium (8.6-10.8) mg/dL Total Bilirubin 0.6 (0.2-1.2) mg/dL Direct Bilirubin 0.3 (0.0-0.5) mg/dL Indirect Bilirubin 0.3 (0.0-1.2) mg/dL AST 13 (5-34) Units/L ALT 9 (0-55) Units/L Alkaline Phosphatase 83 (38-126) Units/L Serum Total Protein 7.8 (6.0-8.3) g/dL Albumin 3.9 (3.5-5.0) g/dL Globulin 3.9 H (2.4-3.5) g/dL Albumin/Globulin Ratio 1.0 L (1.1-2.2) Lipase (8-78) Units/L
[2016-12-29] MEDS ORDERED: Ondansetron 4 MG/2 ML VIAL IV ONE (00:14)
[2016-12-29 00:40] LABS: Albumin 3.9 g/dL (3.5-5.0); Bilirubin,Direct 0.3 mg/dL (0.0-0.5); Bilirubin,Indirect 0.3 mg/dL (0.0-1.2); Globulin 3.9 g/dL (2.4-3.5); Total Protein 7.8 g/dL (6.0-8.3)
[2016-12-29 00:41] LABS: Bilirubin,Total 0.6 mg/dL (0.2-1.2)
[2016-12-29] MEDS ORDERED: 0.9 % Sodium Chloride 1,000 ML ONE (01:43)
[2016-12-29] MEDS: *HR* Promethazine 25 MG/ML VIAL IVP ONE ×2 (01:46→03:19)
[2016-12-29 04:04] LABS: Bilirubin,Urine Small (Negative); Blood,Urine Negative (Negative); Clarity,Urine Cloudy (Clear); Color,Urine Dark Yellow (Yellow); Glucose,Urine (UA) Normal (Normal); Ketones,Urine 40 mg/dL (Negative); Leukocyte Esterase,Urine Negative (Negative); Nitrite,Urine Negative (Negative); Protein,Urine 30 mg/dL (Neg-Trace); Specific Gravity,Urine 1.029 (1.010-1.025); Urobilinogen,Urine Normal (Normal)
[2016-12-29 04:17] LABS: Squamous Epithelial Cell,Urine Moderate per lpf (None-Few)
[2016-12-29 04:18] LABS: Bacteria,Urine Moderate per hpf (None-Few); Mucus,Urine Moderate (Few); RBC,Urine 0-3 per hpf (0-3); WBC,Urine 0-3 per hpf (0-3)
[2016-12-29] MEDS ORDERED: Naloxone 0.4 MG/ML INJ IVP PRN (09:13)
[2016-12-29] MEDS ORDERED: *HR* Promethazine 25 MG/ML VIAL IVP PRN (09:13)
[2016-12-29] MEDS ORDERED: Ondansetron 4 MG/2 ML VIAL IVP PRN (09:13)
[2016-12-29] MEDS: *HR* HYDROmorphone (PF) 1 MG/ML SYRINGE IVP PRN (10:40)
--- NOTE | 2016-12-29 11:14 | Internal Med History&Physical ---
Date of Encounter: 12/29/16 Time of Encounter: 11:11 Assessment and Plan (1) Severe protein-calorie malnutrition Current visit: Yes Status: Acute Nutrition consult. Patient is currently nothing by mouth and is severely malnourished and will benefit from TPN. (2) Elevated white blood cell count Current visit: Yes Status: Acute Could be secondary to acute illness, however could be in the context of developing pneumonia given the imaging findings. We will monitor respiratory status. Obtain blood culture. Monitor WBC. Qualifiers: Leukocytosis type: unspecified Qualified Code(s): D72.829 - Elevated white blood cell count, unspecified (3) Partial small bowel obstruction Current visit: Yes Status: Acute Could be secondary to adherence from prior surgery versus recurrence of malignancy. We will consult general surgery. Patient will be nothing by mouth. Place NG tube. IV fluid hydration. IV hydromorphone for pain. IV Zofran for nausea. He is at high risk for morbidity mortality and complications due to treatment with IV opiates. (4) DVT prophylaxis Current visit: No Status: Acute Encourage early ambulation. (5) History of gastric cancer Current visit: No Status: Resolved Oncology consult. I will obtain records from [facility] regarding his surgery and cancer treatment. Internal Medicine - H&P: HPI Admitted From: Emergency Dept Plans for Post Hospital Care: Home History of present illness: Mr. Chand is a 41 year old male with past medical history significant for stomach cancer status post resection and chemotherapy and radiation and [place] 9 years ago who has been in remission since then and now presents to the hospital for evaluation of abdominal pain, nausea and vomiting. He reports 2 days of constant nausea and bilious nonbloody vomiting. He reports epigastric abdominal pain described as severe, sharp and radiating to the left lower quadrant not relieved by vomiting, worse with movement. He has had no bowel movement for the last 2 days and reports passing gas minimally. Denies associated fevers chills chest pain. Review of systems: Positive for weight loss and chronic cough, otherwise a 10 point review of systems was negative. Family history positive for patient's father suffered with stomach cancer. Social history: Patient smokes 1-2 packs of cigarettes a day. He is unemployed. Denies alcohol abuse and recreational drug use. Past Med Surg Social Fam HX - Past Medical History Medical history: cancer Psychiatric history: no psych history - Past Surgical History Surgical History: cholecystectomy, other (partial gastrectomy) - Social History Smoking Status: Current every day smoker Smokeless Tobacco Status: No Alcohol use: rarely Drug use: none - Family History Father Hx Family Cardiac Disorders: Yes (hypertension) Hx Family Cancer: Yes (gastric) Internal Medicine - H&P: Meds Mirtazapine [Remeron] 15 mg PO HS #30 tablet 12/15/16 [Rx] Omeprazole 20 mg PO DAILY 30 Days 12/15/16 [Rx] Allergies No Known Allergies Allergy (Verified 12/28/16 22:45) All Systems PM: A 10-system review of systems was performed and is negative for pertinent findings except as documented above in the HPI. - Constitutional Vitals: Temp Pulse Resp BP Pulse Ox 98.2 F 92 16 142/92 95 12/29/16 07:41 12/29/16 07:41 12/29/16 07:41 12/29/16 07:41 12/29/16 07:41 General appearance: Present: A&O X 3 Exam: cachectic - Eye Eye exam: Present: PERRL, conjuntiva pink, sclera anicteric Pupils: Present: PERRL - Respiratory Respiratory exam: Present: CTAB. Absent: accessory muscle use, rales, rhonchi, wheezes - Cardiovascular Cardiovascular exam: Present: RRR, +S1, +S2. Absent: diastolic murmur, gallop, rubs, systolic murmur - GI/Abdominal Additional comments: Ventral abdominal surgical scar noted. No peristaltic waves noted. Abdomen is scaphoid, tender to palpation in the epigastric area and left lower quadrant with no rebound, no guarding. Bowel sounds are diminished throughout. - Extremities Exam Extremities exam: Present: warm, radial pulses palpable and symetrical. Absent : calf tenderness, cyanotic, pedal edema - Neurological Exam Neurological exam: Present: CN II-XII intact, oriented X3, no focal deficits. Absent: pronater drift, facial droop, speech deficit - Skin Skin exam: Present: dry, intact Internal Med - H&P Results - Labs CBC & Chem 7: 12/30/16 04:15 12/30/16 04:15
[2016-12-29] MEDS: Pantoprazole 40 MG VIAL IVP SCH ×2 (12:01→18:30)
[2016-12-29] MEDS: 0.9 % Sodium Chloride 1,000 ML IVC SCH (12:01)
[2016-12-29] MEDS: Nicotine 21 MG PATCH.TD24 TD SCH (13:16)
[2016-12-29] MEDS ORDERED: Chloraseptic Spray 177 ML BOTTLE MM PRN (14:13)
--- NOTE | 2016-12-29 15:34 | General Surgery Consult Note ---
Date of Encounter: 12/29/16 Time of Encounter: 15:15 Assessment and Plan (1) Partial small bowel obstruction Current Visit: Yes Status: Acute Bowel rest NG tube to LIWS IV fluids Front Office Agent consult PICC line and TPN ordered per hospitalist Surgery will continue to follow and assess progress (2) History of gastric cancer Current Visit: No Status: Resolved Consider EGD in the next 24-48 hours (3) Protein calorie malnutrition Current Visit: Yes Status: Chronic Front Office Agent consult PICC line placement and start of TPN therapy 12/30/16 (4) Early satiety Current Visit: No Status: Chronic (5) Nausea & vomiting Current Visit: No Status: Acute Bowel rest NG tube to LIWS Qualifiers: Vomiting type: unspecified Vomiting Intractability: non-intractable Qualified Code(s): R11.2 - Nausea with vomiting, unspecified History of Present Illness Consult date: 12/29/16 Reason for consult: other (SBO) Requesting physician: Greg Coon History of present illness: This is a 41 year old male with PMH significant for previous gastric cancer status post partial gastrectomy, chemotherapy, and radiation 8 years ago. He was admitted on 12/14/16 with a 2 weeks of nausea and vomiting that has progressed to becoming bilious. He has had unintentional weight loss over the pass 3 years and has lost at least 50 lb. in the last 6 months. Small bowel follow-through demonstrated no evidence of small bowel obstruction or ileus during recent admission. Contrast was able to reach the colon within 30 minutes. The patient was fed and tolerated diet. He was discharged to home and outpatient follow-up was recommended for EGD. The patient reported back to the ED last evening with a 24 hour history of LUQ pain with associated nausea/ vomiting. He states the vomitus is bilious. Denies any flatus or bowel movements over the past 48 hours. He states that he has not had an EGD or follow -up since completion of his chemotherapy/radiation 8 years ago. His surgery was complete at [facility]. He admits to reflux symptoms but states this has improved with NG tube placement. Denies any shortness of breath of chest pains. We have been asked to see an evaluate the patient for recommendations. Past Med Surg Social Fam HX - Past Medical History Source: patient Medical history: cancer (gastric), GERD Psychiatric history: no psych history - Past Surgical History Surgical History: cholecystectomy, other (partial gastrectomy) - Social History Smoking Status: Current every day smoker Smokeless Tobacco Status: No Alcohol use: rarely Drug use: none Current living situation: Home - Independent Activity Level: Independent ambulation - Family History Father Hx Family Cardiac Disorders: Yes (hypertension) Hx Family Cancer: Yes (gastric) Medications and Allergies Mirtazapine [Remeron] 15 mg PO HS #30 tablet 12/15/16 [Rx] Omeprazole 20 mg PO DAILY 30 Days 12/15/16 [Rx] Allergies No Known Allergies Allergy (Verified 12/28/16 22:45) Review of Systems All systems PM: reviewed and no additional remarkable complaints except as stated (in the HPI) All systems PM: A 10-system review of systems was performed and is negative for pertinent findings except as documented above in the HPI. General Surgery Exam Initial Vital Signs Temp Pulse Resp BP Pulse Ox 98.1 F 126 16 121/68 98 12/28/16 22:45 12/28/16 22:45 12/28/16 22:45 12/28/16 22:45 12/28/16 22:45 - General physical appearance well developed, no distress, cachectic, chronically ill - Eyes normal ocular movement - ENT normal mucosa, atraumatic, normocephalic - Neck trachea midline - Respiratory normal respiratory effort, clear to auscultation - Cardiovascular Cardiovascular exam: Present: RRR, 15, 16 - Abdomen Abdomen general surgery: Present: bowel sounds present (minimal, hypoactive), soft, scaphoid, tender, wound (NG tube to LIWS with blood tinged drainage noted (750ml noted)) Abdominal Tenderness: Present: LUQ - Integumentary Integumentary general surgery: Present: warm and dry - Neurologic Present: CN 2-12 grossly intact - Psychiatric Psychiatric general surgery: Present: appropriate, oriented to person, oriented to place, oriented to time, speech is normal, memory intact Exam Initial Vital Signs Temp Pulse Resp BP Pulse Ox 98.1 F 126 16 121/68 98 12/28/16 22:45 12/28/16 22:45 12/28/16 22:45 12/28/16 22:45 12/28/16 22:45 Results - Labs 12/31/16 08:25 01/01/17 03:48 Abnormal lab results WBC 20.1 K/mcL (4.3-11.1) H 12/28/16 23:10 RDW 14.7 % (11.5-14.5) H 12/28/16 23:10 Neutrophils # 16.4 K/mcL (1.6-8.9) H 12/28/16 23:10 Glucose 137 mg/dL (70-99) H 12/28/16 23:10 Lactic Acid 2.4 mmol/L (0.5-2.2) H 12/28/16 23:10 Globulin 3.9 g/dL (2.4-3.5) H 12/28/16 23:13 Albumin/Globulin Ratio 1.0 (1.1-2.2) L 12/28/16 23:13 Urine Clarity Cloudy (Clear) A 12/29/16 03:45 Ur Specific [place] 1.029 (1.010-1.025) H 12/29/16 03:45 Urine Protein 30 mg/dL (Neg-Trace) H 12/29/16 03:45 Urine Ketones 40 mg/dL (Negative) H 12/29/16 03:45 Urine Bilirubin Small (Negative) H 12/29/16 03:45 Ur Squamous Epith Cells Moderate per lpf (None-Few) H 12/29/16 03:45 Urine Bacteria Moderate per hpf (None-Few) H 12/29/16 03:45 Urine Mucus Moderate (Few) H 12/29/16 03:45 All other labs normal. - Imaging Additional studies: Abdomen/Pelvis CT 12/28/16 23:01 IMPRESSION: 1. Findings suspicious for partial or low-grade small bowel obstruction. Transition point suspected in the left lower abdomen. 2. Mild branching opacities in the left lower lobe. Correlate for mild infectious small airways disease. 3. Nonobstructive right renal stones. No hydronephrosis. D/ / 12/29/2016 07:18:09 José Miguel Mendoza MD / mansi Interpreting Provider: José Miguel Mendoza MD Consult Discharge Plan - Plan [place]: [facility] [place] Silver MD [Non-Partnered Physician] - 01/10/17 2:45 pm - Attending Attestation I examined this patient and my medical decision-making was reviewed with the ENERGY MANAGER/PA/Advanced Practice Nurse/Resident Physician. I agree with the documented findings, disposition and treatment plan as described except to the extent set forth below.
--- NOTE | 2016-12-29 18:44 | Oncology Inp Consult Note ---
Date of Encounter: 12/29/16 Time of Encounter: 18:43 Assessment and Plan (1) Small bowel obstruction Status: Acute Assessment and plan: He is currently getting TPN (2) History of gastric cancer Status: Resolved Assessment and plan: Post gastrojejunostomy after partial gastrectomy 8 years ago. We will try to get that report Currently admitted with subacute small bowel obstruction symptom. Also acute hemorrhagic gastritis. We will await records from [facility]. No evidence of metastasis by a noncontrast CT on 12/29/2016. If necessary may consider further imaging - Data of Consult Requesting Physician: Pineda Mccray MD Primary Care Provider: PCP NO - Consult Narrative Reason for consult: History of gastric cancer History of present illness: Mr. Chand is a 41 year old male The patient reported back to the ED last evening with a 24 hour history of LUQ pain with associated nausea/vomiting and obstipation for 2 days He states that he has not had an EGD or follow-up since completion of his chemotherapy/radiation [address] of the abdomen and pelvis without contrast 12/28/2016 showed suspicious for partial small bowel obstruction left lower quadrant. Possible mild infectious small airway disease. Nonobstructive renal stones without hydronephrosis Elevated neutrophil count of 16,000. Rest of CBC normal. CMP unremarkable. EGD by Dr. Alonso 12/30/2016 showed diffuse hemorrhagic gastritis biopsy is done. Also superficial ulcers in the esophagus Past Medical history Gastric cancer post partial gastrectomy about 8 years ago [facility] apparently had gastrojejunostomy He was admitted on 12/14/16 with a 2 weeks of nausea and vomiting that has progressed to becoming bilious. He has had unintentional weight loss over the pass 3 years and has lost at least 50 lb. in the last 6 months. Small bowel follow-through demonstrated no evidence of small bowel obstruction or ileus during recent admission. Contrast was able to reach the colon within 30 minutes. The patient was fed and tolerated diet. He was discharged to home and outpatient follow-up was recommended for EGD. Past Med Surg Social Fam HX - Past Medical History Medical history: cancer (gastric), GERD Psychiatric history: no psych history - Past Surgical History Surgical History: cholecystectomy, other (partial gastrectomy) - Social History Smoking Status: Current every day smoker Smokeless Tobacco Status: No Alcohol use: rarely Drug use: none - Family History Father Hx Family Cardiac Disorders: Yes (hypertension) Hx Family Cancer: Yes (gastric) Medications and Allergies Mirtazapine [Remeron] 15 mg PO HS #30 tablet 12/15/16 [Rx] Omeprazole 20 mg PO DAILY 30 Days 12/15/16 [Rx] Allergies No Known Allergies Allergy (Verified 12/28/16 22:45) Review of systems: Diffuse abdominal pain. On NG tube to suction when I saw him Oncology - Exam - Constitutional Vitals: Temp Pulse Resp BP Pulse Ox 99.3 F 100 16 148/95 96 12/29/16 15:27 12/29/16 15:27 12/29/16 15:27 12/29/16 15:27 12/29/16 15:27 Exam: GENERAL: Alert and oriented, well appearing. Mental Status: Affect appropriate for circumstances HEENT: Sclerae anicteric. No mucositis or thrush. No other oral or pharyngeal lesions or erythema. Skin: No rashes or petechiae. No evidence of skin malignancy Lymph nodes: No cervical, supraclavicular, axillary, or inguinal adenopathy. Lungs: Clear to auscultation and percussion bilaterally. Cardiovascular: Regular rate and rhythm. No gallops, murmurs, or rubs. Abdomen: Soft, mild diffuse tenderness. On NG tube to suction . Extremities: No edema. No calf swelling or tenderness. No joint deformity. Neurologic: Alert, cranial nerves II-XII intact; normal gait; no focal weakness or sensory abnormalities. Consult Discharge Plan - Plan Referrals: Silver barahona MD [Non-Partnered Physician] - 01/10/17 2:45 pm
[2016-12-29] MEDS: Levofloxacin 500 MG/100 ML 500 MG/100 ML BAG IVPB SCH (23:10)
[2016-12-30] MEDS: 0.9 % Sodium Chloride 1,000 ML IVC SCH ×3 (02:37→13:29)
[2016-12-30 04:35] LABS: Basophils # 0.1 K/mcL (0.0-0.2); Basophils % 0.5 %; Eosinophils % 0.2 %; Hematocrit 36.1 % (37.5-50.1); Immature Granulocytes % 0.2 % (0-4); Lymphocytes # 1.5 K/mcL (0.6-4.6); Lymphocytes % 14.6 %; Mean Corpuscular HGB Conc 33.2 g/dL (31.6-35.5); Mean Corpuscular Hemoglobin 29.9 pg (28.0-33.3); Mean Platelet Volume 10.2 fL (9.4-12.4); Monocytes # 1.3 K/mcL (0.0-1.3); Monocytes % 12.2 %; Neutrophils # 7.5 K/mcL (1.6-8.9); Platelet Count 219 K/mcL (140-400); Red Blood Count 4.01 M/mcL (4.19-5.50); Red Cell Distribution Width 14.7 % (11.5-14.5); Segmented Neutrophils % 72.3 %
[2016-12-30 04:52] LABS: Alanine Aminotransferase 8 Units/L (0-55); Albumin/Globulin Ratio 0.9 (1.1-2.2); Alkaline Phosphatase 62 Units/L (38-126); Aspartate Amino Transferase 12 Units/L (5-34); BUN/Creatinine Ratio 21 (6-26); Bilirubin,Total 0.6 mg/dL (0.2-1.2); Blood Urea Nitrogen 20 mg/dL (8-26); Calcium 8.9 mg/dL (8.6-10.8); Carbon Dioxide 21 mEq/L (19-29); Chloride 106 mEq/L (98-109); Globulin 3.5 g/dL (2.4-3.5); Glucose 102 mg/dL (70-99); Magnesium 1.7 mg/dL (1.6-2.6); Osmolality,Calculated 289 (280-300); Phosphorous 3.2 mg/dL (2.3-4.7); Potassium 4.4 mEq/L (3.5-4.5); Sodium 138 mEq/L (136-145); Total Protein 6.5 g/dL (6.0-8.3); Triglycerides 100 mg/dL (< 150); eGFR For African Americans > 60 (> 60); eGFR For Non-African Americans > 60 (> 60)
[2016-12-30] MEDS: Pantoprazole 40 MG VIAL IVP SCH ×2 (05:51→17:46)
[2016-12-30] MEDS ORDERED: D10% in Water 500 ML IV PRN (08:00)
[2016-12-30] MEDS: Nicotine 21 MG PATCH.TD24 TD SCH (08:05)
[2016-12-30] MEDS ORDERED: 0.9 % Sodium Chloride 1,000 ML IVC SCH (10:01)
--- NOTE | 2016-12-30 10:07 | Internal Med Progress Note ---
Date of Encounter: 12/30/16 Time of Encounter: 10:05 - Assessment and plan (1) Partial small bowel obstruction Current Visit: Yes Status: Acute Assessment and plan: clinically better, NG tube draining >3l since yesterday. no abdominal pain, has not passes any gas, no bowel soynds on exam. will keep NPO with ice chips, conitnue NG today will follow surgical recommendations. CT abd shows partial SBO. has been started on TPN/ (2) Severe protein-calorie malnutrition Current Visit: Yes Status: Acute Assessment and plan: h/o gastric cancer with surgeyr in the past no appetite and lost weight, lost f/u as he has no insurance Dietary has been consulted, has been nothing by mouth due to SBO, continue TPN for now. (3) History of gastric cancer Current Visit: No Status: Resolved Assessment and plan: Oncology has been consulted. He lost follow-up as he did not have any insurance. We will follow oncology recommendations. (4) Elevated white blood cell count Current Visit: Yes Status: Acute Assessment and plan: Leukocytosis is improved today. He denies any cough or fever or chest pain at home. We will order a chest x-ray today, was started on levofloxacin empirically for possible pneumonia. If the chest x-ray does not show any pneumonia, we will stop IV antibiotics. It could also be secondary to stress from abdominal pain secondary to small bowel obstruction. Qualifiers: Leukocytosis type: unspecified Qualified Code(s): D72.829 - Elevated white blood cell count, unspecified - Time Spent With Patient 25 - 35 minutes - Subjective Interval history: Patient seen at the bedside, admitted for small bowel obstruction. History of gastric cancer status post surgery 8-9 years ago, but lost follow-up since he lost his insurance. Appears cachectic, reports that he has no abdominal pain or nausea or vomiting today after they put the NG tube and yesterday. Noted that NG is still draining greenish dark fluid. Patient kept nothing by mouth, started TPN yesterday. Gen. surgery and oncology has been consulted. - Constitutional Vitals: Temp Pulse Resp BP Pulse Ox 98.3 F 92 18 137/87 97 12/30/16 06:42 12/30/16 06:42 12/30/16 06:42 12/30/16 06:42 12/30/16 06:42 General appearance: Present: A&O X 3 Exam: Neck supple. Appears dry, mucous membranes are dry. Chest bilateral clear, no added sounds. CVS S1-S2, no murmurs rubs or gallops. Abdomen soft, scaphoid, nontender, bowel sounds are not heard. Extremities no edema. Neuro no focal deficits. Internal Medicine: Result - Labs CBC & Chem 7: 12/30/16 04:15 12/30/16 04:15 Labs: Short CBC 12/30/16 Range/Units 04:15 WBC 10.4 (4.3-11.1) K/mcL Hgb 12.0 L D (12.9-16.9) g/dL Hct 36.1 L (37.5-50.1) % Plt Count 219 (140-400) K/mcL Neutrophils # 7.5 (1.6-8.9) K/mcL BMP 12/30/16 04:15 Sodium 138 Potassium 4.4 Chloride 106 Carbon Dioxide 21 BUN 20 Creatinine 0.95 Glucose 102 H Calcium 8.9 Liver Function 12/30/16 Range/Units 04:15 Total Bilirubin 0.6 (0.2-1.2) mg/dL AST 12 (5-34) Units/L ALT 8 (0-55) Units/L Alkaline Phosphatase 62 (38-126) Units/L Albumin 3.0 L D (3.5-5.0) g/dL Consult Discharge Plan - Plan Referrals: Silver barahona MD [Non-Partnered Physician] - 01/10/17 2:45 pm
[2016-12-30] MEDS ORDERED: *HR* FentaNYL (PF) 100 MCG/2 ML VIAL ONE (11:42)
[2016-12-30] MEDS ORDERED: *HR* Midazolam HCl 5 MG/5 ML VIAL IVP ONE (11:43)
[2016-12-30] MEDS ORDERED: 0.9 % Sodium Chloride 500 ML IVC SCH (12:15)
[2016-12-30] MEDS ORDERED: Tetracaine/Benzocaine/Butamben 200MG/SPRAY (100SPY/BOT) MM ONE (12:22)
[2016-12-30] MEDS ORDERED: *HR* Midazolam HCl 5 MG/5 ML VIAL IVP PRN (12:22)
[2016-12-30] MEDS ORDERED: Simethicone 40 MG/0.6 ML MLS IR ONE (12:22)
--- NOTE | 2016-12-30 12:22 | Pre-Sedation Evaluation ---
Pre-sedation evaluation - Pre-sedation checklist Date of procedure: 12/30/16 Procedure: egd Recent Vitals: Last Vital Signs Temp 99.6 F 12/30/16 12:03 Pulse 76 12/30/16 12:08 Resp 18 12/30/16 12:08 BP 185/93 12/30/16 12:08 Pulse Ox 98 12/30/16 12:08 H&P (including ROS) documented in medical record: Yes Previous reaction to sedatives/anesthetics: Yes; explain in comment Dietary Status: NPO after Midnight Dentition: No loose teeth or bridges Possible difficult airway: No ASA Classification *see protocol: CLASS III-Severe systemic disease
[2016-12-30] MEDS: *HR* FentaNYL (PF) 100 MCG/2 ML VIAL IVP PRN ×2 (12:30→12:31)
[2016-12-30] MEDS ORDERED: Clinimix E 5%-15% SOLUTION 2,000 ML with MVI, adult with vitamin K 10 ML IV SCH (17:00)
[2016-12-30] MEDS: *HR* HYDROmorphone (PF) 1 MG/ML SYRINGE IVP PRN (20:20)
[2016-12-30] MEDS: Levofloxacin 500 MG/100 ML 500 MG/100 ML BAG IVPB SCH (23:14)
[2016-12-31] MEDS: Pantoprazole 40 MG VIAL IVP SCH ×2 (06:13→17:34)
[2016-12-31] MEDS: 0.9 % Sodium Chloride 1,000 ML IVC SCH (06:14)
[2016-12-31] MEDS: *HR* HYDROmorphone (PF) 1 MG/ML SYRINGE IVP PRN ×2 (07:09→19:40)
[2016-12-31] MEDS: Nicotine 21 MG PATCH.TD24 TD SCH (07:09)
[2016-12-31 08:43] LABS: Basophils % 0.3 %; Eosinophils # 0.2 K/mcL (0.0-0.6); Eosinophils % 1.5 %; Hematocrit 32.3 % (37.5-50.1); Hemoglobin 10.8 g/dL (12.9-16.9); Immature Granulocytes % 0.4 % (0-4); Immature Platelets 3.9 % (1.1-6.1); Lymphocytes # 1.6 K/mcL (0.6-4.6); Lymphocytes % 14.9 %; Mean Corpuscular HGB Conc 33.4 g/dL (31.6-35.5); Mean Corpuscular Hemoglobin 29.3 pg (28.0-33.3); Mean Corpuscular Volume 87.5 fL (83.0-100.0); Mean Platelet Volume 10.1 fL (9.4-12.4); Monocytes # 1.3 K/mcL (0.0-1.3); Monocytes % 12.4 %; Neutrophils # 7.7 K/mcL (1.6-8.9); Platelet Count 174 K/mcL (140-400); Red Blood Count 3.69 M/mcL (4.19-5.50); Red Cell Distribution Width 14.1 % (11.5-14.5); Segmented Neutrophils % 70.5 %
[2016-12-31 08:50] LABS: BUN/Creatinine Ratio 16 (6-26); Blood Urea Nitrogen 11 mg/dL (8-26); Carbon Dioxide 22 mEq/L (19-29); Chloride 105 mEq/L (98-109); Glucose 127 mg/dL (70-99); Magnesium 1.1 mg/dL (1.6-2.6); Osmolality,Calculated 283 (280-300); Phosphorous 2.1 mg/dL (2.3-4.7); Sodium 136 mEq/L (136-145); eGFR For African Americans > 60 (> 60); eGFR For Non-African Americans > 60 (> 60)
[2016-12-31 08:51] LABS: Calcium 7.2 mg/dL (8.6-10.8)
--- NOTE | 2016-12-31 09:50 | Internal Med Progress Note ---
Date of Encounter: 12/31/16 Time of Encounter: 09:47 - Assessment and plan (1) Partial small bowel obstruction Current Visit: Yes Status: Acute Assessment and plan: clinically better, NG tube draining less, today ~600cc. no abdominal pain, very few bowel sounds will follow surgical recommendations for possible NG clamping vs removal. CT abd shows partial SBO. has been started on TPN/ (2) Severe protein-calorie malnutrition Current Visit: Yes Status: Acute Assessment and plan: h/o gastric cancer with surgeyr in the past no appetite and lost weight, lost f/u as he has no insurance Dietary has been consulted, has been nothing by mouth due to SBO, continue TPN for now. (3) History of gastric cancer Current Visit: No Status: Resolved Assessment and plan: Oncology has been consulted. He lost follow-up as he did not have any insurance. We will follow oncology recommendations. EGD yest showed hemorrhagic gastritis which has been biospied and a non beeding esophageal ulcer. continue on PPI and carafate. (4) Elevated white blood cell count Current Visit: Yes Status: Acute Assessment and plan: Leukocytosis has improved. He denies any cough or fever or chest pain at home. cxr did not show any pneumonia, will dc antibiotics. Qualifiers: Leukocytosis type: unspecified Qualified Code(s): D72.829 - Elevated white blood cell count, unspecified - Time Spent With Patient 25 - 35 minutes - Subjective Interval history: Patient seen at the bedside, admitted for small bowel obstruction. History of gastric cancer status post surgery 8-9 years ago, but lost follow-up since he lost his insurance. Appears cachectic, reports that he has no abdominal pain or nausea or vomiting , NG drain has decreased to ~600 cc today. s/p EGD yesterday that showed hemrrhagic gastritis and non bleeding esophageal ulcer. - Constitutional Vitals: Temp Pulse Resp BP Pulse Ox 98.2 F 75 18 139/85 97 12/31/16 06:57 12/31/16 06:57 12/31/16 06:57 12/31/16 06:57 12/31/16 06:57 General appearance: Present: A&O X 3 Exam: Neck supple. Appears dry, mucous membranes are dry. Chest bilateral clear, no added sounds. CVS S1-S2, no murmurs rubs or gallops. Abdomen soft, scaphoid, nontender, bowel sounds are sluggish Extremities no edema. Neuro no focal deficits. Internal Medicine: Result - Labs CBC & Chem 7: 12/31/16 08:25 12/31/16 04:45 Labs: Short CBC 12/31/16 Range/Units 08:25 WBC 10.9 (4.3-11.1) K/mcL Hgb 10.8 L (12.9-16.9) g/dL Hct 32.3 L (37.5-50.1) % Plt Count 174 (140-400) K/mcL Neutrophils # 7.7 (1.6-8.9) K/mcL BMP 12/31/16 04:45 Sodium 136 Potassium 3.0 L D Chloride 105 Carbon Dioxide 22 BUN 11 Creatinine 0.69 L Glucose 127 H Calcium 7.2 L D - Impressions Impressions Chest X-Ray 12/30/16 09:42 IMPRESSION: Recommend advancing NG tube approximately 5 cm. D/ / 12/30/2016 10:49:33 Jerry Alfaro MD / [email or web address] Interpreting Provider: Jerry Alfaro MD Consult Discharge Plan - Plan Referrals: [facility] – [place],Silver Silver MD [Non-Partnered Physician] - 01/10/17 2:45 pm
[2016-12-31] MEDS: Potassium Chloride 40 MEQ, Lidocaine 1% 2 ML in D5% in Water 500 ML IVPB SCH ×2 (10:31→15:37)
--- NOTE | 2016-12-31 14:24 | General Surgery Progress Note ---
Date of Encounter: 12/31/16 Time of Encounter: 09:10 - Assessment and Plan (1) Partial small bowel obstruction Current Visit: Yes Status: Acute Continue bowel rest. EDG yesterday per Dr. Alonso. IV fluids. Continue TPN. Continue NG tube to LIWS. Awaiting pathology results from biopsies. (2) Protein calorie malnutrition Current Visit: Yes Status: Chronic Continue TPN (3) Nausea & vomiting Current Visit: No Status: Acute Resolved at this time. Continue NG tube. Qualifiers: Vomiting type: unspecified Vomiting Intractability: non-intractable Qualified Code(s): R11.2 - Nausea with vomiting, unspecified (4) History of gastric cancer Current Visit: No Status: Resolved Awaiting biopsy pathology from EGD 12/30/16. Subjective Patient reports: no new complaints, feels better, pain is less, voiding w/o difficulty, flatus Narrative: Patient had a Tmax of 100.1 at 22:52 last PM. Denies any feelings of fever. States he feels better today and is beginning to have return of his appetite. Results of EGD yesterday discussed with patient today at bedside. No nausea or vomiting. Objective Vital Signs - Last 8 Hours Temp Pulse Resp BP Pulse Ox 12/31/16 10:37 20 12/31/16 06:57 98.2 F 75 18 139/85 97 Intake and Output 12/30/16 12/31/16 12/31/16 22:59 07:59 15:59 Intake Total 0 / 0 Output Total 0 / 0 Balance 0 / 0 Intake: IV Fluids 0.9 % Sodium Chloride 1, 000 ML @ 60 mls/hr IVC . [id number] MAY Rx#: [id number] Levaquin 500mg/100mL 500 mg In 100 ml @ 100 mls/hr IVPB Q24H MAY Rx#: [id number] Oral 0 / 0 Output: Urine 0 / 0 Gastric Drainage Other: Meal Breakfast Percent of Meal Consumed 0% Weight Blood Glucose* Patient Weight 01/01/17 00:59 Weight 45.5 kg - General physical appearance no distress, cachectic - Eyes normal ocular movement - ENT normal mucosa, poor group home, atraumatic, normocephalic, Other (NG tube in place) - Neck Neck exam: trachea midline - Respiratory normal respiratory effort, clear to auscultation - Cardiovascular Cardiovascular exam: Present: RRR - Abdomen Abdomen: Present: bowel sounds present, soft, non tender - Integumentary no rash - Neurologic CN 2-12 grossly intact - Musculoskeletal normal posture - Psychiatric oriented to time, oriented to person, oriented to place, speech is normal - Labs 12/31/16 08:25 12/31/16 04:45 Diabetes panel 12/31/16 Range/Units 04:45 Sodium 136 (136-145) mEq/L Potassium 3.0 L D (3.5-4.5) mEq/L Chloride 105 (98-109) mEq/L Carbon Dioxide 22 (19-29) mEq/L BUN 11 (8-26) mg/dL Creatinine 0.69 L (0.72-1.25) mg/dL Glucose 127 H (70-99) mg/dL Calcium 7.2 L D (8.6-10.8) mg/dL Calcium panel 12/31/16 Range/Units 04:45 Calcium 7.2 L D (8.6-10.8) mg/dL Phosphorus 2.1 L (2.3-4.7) mg/dL Pituitary panel 12/31/16 Range/Units 04:45 Sodium 136 (136-145) mEq/L Potassium 3.0 L D (3.5-4.5) mEq/L Chloride 105 (98-109) mEq/L Carbon Dioxide 22 (19-29) mEq/L BUN 11 (8-26) mg/dL Creatinine 0.69 L (0.72-1.25) mg/dL Glucose 127 H (70-99) mg/dL Calcium 7.2 L D (8.6-10.8) mg/dL Adrenal panel 12/31/16 Range/Units 04:45 Sodium 136 (136-145) mEq/L Potassium 3.0 L D (3.5-4.5) mEq/L Chloride 105 (98-109) mEq/L Carbon Dioxide 22 (19-29) mEq/L BUN 11 (8-26) mg/dL Creatinine 0.69 L (0.72-1.25) mg/dL Glucose 127 H (70-99) mg/dL Calcium 7.2 L D (8.6-10.8) mg/dL Consult Discharge Plan - Plan Referrals: Silver Newsome MD [Non-Partnered Physician] - 01/10/17 2:45 pm - Attending Attestation I examined this patient and my medical decision-making was reviewed with the CORRAL BOSS/PA/Advanced Practice Nurse/Resident Physician. I agree with the documented findings, disposition and treatment plan as described except to the extent set forth below.
[2016-12-31] MEDS ORDERED: Clinimix E 5%-15% SOLUTION 2,000 ML with MVI, adult with vitamin K 10 ML IV SCH (17:00)
[2017-01-01 04:09] LABS: BUN/Creatinine Ratio 16 (6-26); Blood Urea Nitrogen 9 mg/dL (8-26); Calcium 7.3 mg/dL (8.6-10.8); Carbon Dioxide 24 mEq/L (19-29); Chloride 109 mEq/L (98-109); Glucose 90 mg/dL (70-99); Magnesium 1.2 mg/dL (1.6-2.6); Osmolality,Calculated 284 (280-300); Phosphorous 2.2 mg/dL (2.3-4.7); Potassium 3.3 mEq/L (3.5-4.5); Sodium 138 mEq/L (136-145); eGFR For African Americans > 60 (> 60); eGFR For Non-African Americans > 60 (> 60)
[2017-01-01] MEDS: Pantoprazole 40 MG VIAL IVP SCH ×2 (06:32→17:25)
[2017-01-01] MEDS: 0.9 % Sodium Chloride 1,000 ML IVC SCH (07:37)
[2017-01-01] MEDS: Nicotine 21 MG PATCH.TD24 TD SCH (07:38)
[2017-01-01] MEDS: *HR* HYDROmorphone (PF) 1 MG/ML SYRINGE IVP PRN (09:30)
--- NOTE | 2017-01-01 09:33 | General Surgery Progress Note ---
Date of Encounter: 01/01/17 Time of Encounter: 09:30 - Assessment and Plan (1) Partial small bowel obstruction Current Visit: Yes Status: Acute Continue bowel rest. EDG 12/30/[address] Alonso IV fluids. Continue TPN. Continue NG tube to LIWS. Awaiting pathology results from biopsies. (2) Protein calorie malnutrition Current Visit: Yes Status: Chronic Continue TPN (3) Nausea & vomiting Current Visit: No Status: Acute Resolved at this time. Continue NG tube. Qualifiers: Vomiting type: unspecified Vomiting Intractability: non-intractable Qualified Code(s): R11.2 - Nausea with vomiting, unspecified (4) History of gastric cancer Current Visit: No Status: Resolved Awaiting biopsy pathology from EGD 12/30/16. Subjective Patient reports: feels better, still having pain, pain is less, flatus, no bowel movement Narrative: patient seen and examined it bedside. states he is continuing to feel better, but still feels weak all over. He continues to have flatus but no bowel movement. owel sounds are present in all 4 quadrants. No nausea or vomiting at this time. States his pain is controlled with current regimen Objective Vital Signs - Last 8 Hours Temp Pulse Resp BP Pulse Ox 01/01/17 05:25 98.3 F 85 15 136/86 96 01/01/17 04:41 97.4 F L 68 15 112/65 95 01/01/17 01:35 99.5 F 75 15 107/72 97 Intake and Output 12/31/16 01/01/17 01/01/17 23:59 07:59 15:59 Intake Total 250 / 250 Output Total 975 / 975 1600 / 1600 Balance -975 / -975 -1350 / -1350 Intake: IV Fluids 250 / 250 Intralipid 20% 250 ML @ 250 / 250 21 mls/hr IVPB DAILY@1700 [facility] Rx#:[id number] Output: Urine 725 / 725 450 / 450 Catheter 250 / 250 Gastric Drainage 1150 / 1150 Right Nare 900 / 900 Other: Meal NPO NPO breakfast Weight 48.534 kg Blood Glucose* 112 114 Patient Weight 01/01/17 23:59 Weight 48.534 kg - Additional Exam - General physical appearance no distress, cachectic - Eyes normal ocular movement - ENT normal mucosa, poor jail, atraumatic, normocephalic, Other (NG tube in place) - Neck Neck exam: trachea midline - Respiratory normal respiratory effort, clear to auscultation - Cardiovascular Cardiovascular exam: Present: RRR - Abdomen Abdomen: Present: bowel sounds present, soft, non tender - Integumentary no rash - Neurologic CN 2-12 grossly intact - Musculoskeletal normal posture - Psychiatric oriented to time, oriented to person, oriented to place, speech is normal - Labs 12/31/16 08:25 01/01/17 03:48 Diabetes panel 01/01/17 Range/Units 03:48 Sodium 138 (136-145) mEq/L Potassium 3.3 L (3.5-4.5) mEq/L Chloride 109 (98-109) mEq/L Carbon Dioxide 24 (19-29) mEq/L BUN 9 (8-26) mg/dL Creatinine 0.58 L (0.72-1.25) mg/dL Glucose 90 (70-99) mg/dL Calcium 7.3 L (8.6-10.8) mg/dL Calcium panel 01/01/17 Range/Units 03:48 Calcium 7.3 L (8.6-10.8) mg/dL Phosphorus 2.2 L (2.3-4.7) mg/dL Pituitary panel 01/01/17 Range/Units 03:48 Sodium 138 (136-145) mEq/L Potassium 3.3 L (3.5-4.5) mEq/L Chloride 109 (98-109) mEq/L Carbon Dioxide 24 (19-29) mEq/L BUN 9 (8-26) mg/dL Creatinine 0.58 L (0.72-1.25) mg/dL Glucose 90 (70-99) mg/dL Calcium 7.3 L (8.6-10.8) mg/dL Adrenal panel 01/01/17 Range/Units 03:48 Sodium 138 (136-145) mEq/L Potassium 3.3 L (3.5-4.5) mEq/L Chloride 109 (98-109) mEq/L Carbon Dioxide 24 (19-29) mEq/L BUN 9 (8-26) mg/dL Creatinine 0.58 L (0.72-1.25) mg/dL Glucose 90 (70-99) mg/dL Calcium 7.3 L (8.6-10.8) mg/dL - VTE Documentation of Mechanical Device: Intermittent pneumatic compression device Consult Discharge Plan - Plan Referrals: Silver Newsome MD [Non-Partnered Physician] - 01/10/17 2:45 pm
[2017-01-01] MEDS ORDERED: Potassium Chloride 40 MEQ, Lidocaine 1% 2 ML in D5% in Water 500 ML IVPB ONE (14:44)
[2017-01-01] MEDS ORDERED: Magnesium Sulfate 2 GM in D5% in Water 100 ML IVPB ONE (14:45)
[2017-01-01] MEDS ORDERED: Potassium Phosphate 44 MEQ in 0.9 % Sodium Chloride 250 ML IVPB ONE (14:47)
--- NOTE | 2017-01-01 15:02 | Internal Med Progress Note ---
Date of Encounter: 01/01/17 Time of Encounter: 15:00 - Assessment and plan (1) Partial small bowel obstruction Current Visit: Yes Status: Acute Assessment and plan: clinically better, NG tube draining dark colored fluid no abdominal pain, very few bowel sounds will follow surgical recommendations for further recommendation, awaiting path report from gastric biopsy CT abd shows partial SBO. has been started on TPN/ (2) Severe protein-calorie malnutrition Current Visit: Yes Status: Acute Assessment and plan: h/o gastric cancer with surgeyr in the past no appetite and lost weight, lost f/u as he has no insurance Dietary has been consulted, has been nothing by mouth due to SBO, continue TPN for now. (3) History of gastric cancer Current Visit: No Status: Resolved Assessment and plan: Oncology has been consulted. He lost follow-up as he did not have any insurance. We will follow oncology and surgical recommendations. EGD showed hemorrhagic gastritis which has been biospied and a non beeding esophageal ulcer. continue on PPI and carafate. await path reports. (4) Elevated white blood cell count Current Visit: Yes Status: Acute Assessment and plan: Leukocytosis has improved. He denies any cough or fever or chest pain at home. cxr did not show any pneumonia, will dc antibiotics. Qualifiers: Leukocytosis type: unspecified Qualified Code(s): D72.829 - Elevated white blood cell count, unspecified - Time Spent With Patient 25 - 35 minutes - Subjective Interval history: Patient seen at the bedside, admitted for small bowel obstruction. History of gastric cancer status post surgery 8-9 years ago, but lost follow-up since he lost his insurance. Appears cachectic, reports that he has no abdominal pain or nausea or vomiting , says that he feels low today, NG draining dark colored fluid. s/p EGD that showed hemrrhagic gastritis and non bleeding esophageal ulcer. - Constitutional Vitals: Temp Pulse Resp BP Pulse Ox 97.7 F 69 14 103/70 98 01/01/17 10:56 01/01/17 10:56 01/01/17 10:56 01/01/17 10:56 01/01/17 10:56 General appearance: Present: A&O X 3 Exam: Neck supple. Appears dry, mucous membranes are moist Chest bilateral clear, no added sounds. CVS S1-S2, no murmurs rubs or gallops. Abdomen soft, scaphoid, nontender, bowel sounds are sluggish Extremities no edema. Neuro no focal deficits. Internal Medicine: Result - Labs CBC & Chem 7: 12/31/16 08:25 01/01/17 03:48 Labs: BMP 01/01/17 03:48 Sodium 138 Potassium 3.3 L Chloride 109 Carbon Dioxide 24 BUN 9 Creatinine 0.58 L Glucose 90 Calcium 7.3 L - VTE Documentation of Mechanical Device: Intermittent pneumatic compression device Consult Discharge Plan - Plan Referrals: Silver Newsome MD [Non-Partnered Physician] - 01/10/17 2:45 pm
[2017-01-01] MEDS ORDERED: Clinimix E 5%-15% SOLUTION 2,000 ML with MVI, adult with vitamin K 10 ML IV SCH (17:00)
--- NOTE | 2017-01-01 17:01 | Oncology Inp Progress Note ---
<Pau Paul E - Last Filed: 01/01/17 16:59> Date of Encounter: 01/01/17 Time of Encounter: 15:45 Oncology: Subj Interval history: The patient reports that he continues to have abdominal pain, however the pain is not as severe as it was previously. As reports having less nausea since he had the NG tube placed. He denies having a bowel movement this states he is able to pass gas. Anxious to get the results of the pathology report. He is very fearful that his gastric cancer as recurred. Seen and examined at the bedside. diagnostic testing reviewed. Awaiting pathology report. - Constitutional Vitals: Vital Signs Temp Pulse Resp BP Pulse Ox 01/01/17 10:56 97.7 F 69 14 103/70 98 01/01/17 05:25 98.3 F 85 15 136/86 96 01/01/17 04:41 97.4 F L 68 15 112/65 95 01/01/17 01:35 99.5 F 75 15 107/72 97 12/31/16 22:05 98.8 F 81 15 120/80 98 Intake and Output 01/01/17 01/01/17 01/01/17 07:59 15:59 23:59 Intake Total 250 / 250 Output Total 1600 / 1600 750 / 750 Balance -1350 / -1350 -750 / -750 Intake: IV Fluids 250 / 250 Intralipid 20% 250 ML @ 250 / 250 21 mls/hr IVPB DAILY@1700 [facility] Rx#:[id number] Output: Urine 450 / 450 0 / 0 Gastric Drainage 1150 / 1150 750 / 750 Right Nare 900 / 900 Other: Meal NPO Weight 48.534 kg Blood Glucose* 114 124 Patient Weight 01/01/17 23:59 Weight 48.534 kg General appearance: cooperative, no acute distress - Head Head exam: Present: normocephalic - Eye Eye exam: Present: normal appearance, sclera anicteric - ENT ENT exam: Present: mucous membranes dry - Respiratory Respiratory exam: Present: CTAB - Cardiovascular Cardiovascular exam: Present: RRR - GI/Abdominal GI/Abdominal exam: Present: normal bowel sounds, soft Additional comments: NG in place - Extremities Exam Extremities exam: Present: normal inspection - Neurological Exam Neurological exam: Present: alert, oriented X3 - Psychiatric Psychiatric exam: Present: anxious, normal affect Oncology: Obj Data - Labs CBC & Chem 7: 12/31/16 08:25 01/01/17 03:48 Labs: Laboratory Results - last 24 hr 01/01/17 01/01/17 01/01/17 01:38 03:48 05:29 Sodium 138 Potassium 3.3 L Chloride 109 Carbon Dioxide 24 BUN 9 Creatinine 0.58 L Est GFR ( Amer) > 60 Est GFR (Non-Af Amer) > 60 BUN/Creatinine Ratio 16 Glucose 90 POC Glucose 123 H 102 H Calculated Osmolality 284 Calcium 7.3 L Phosphorus 2.2 L Magnesium 1.2 L 01/01/17 01/01/17 01/01/17 07:24 11:55 15:24 Sodium Potassium Chloride Carbon Dioxide BUN Creatinine Est GFR ( Amer) Est GFR (Non-Af Amer) BUN/Creatinine Ratio Glucose POC Glucose 114 H 124 H 99 H Calculated Osmolality Calcium Phosphorus Magnesium Consult Discharge Plan - Plan [facility] - 01/10/17 2:45 pm <Dirk Velez S - Last Filed: 01/02/17 12:33> (1) Small bowel obstruction Current Visit: Yes Status: Acute Assessment and plan: Currently on TPN. Also NG tube to suction. Magic gastritis. Pathology results pending (2) History of gastric cancer Current Visit: No Status: Resolved Assessment and plan: Post gastrojejunostomy after partial gastrectomy 2. Pathology report from 03/25/2009 at [facility] Distal stomach resection. Poorly differentiated intestinal type. Focal areas of mucinous differentiation percent Tumor penetrates the serosa Lymphatic invasion present but no large vessel invasion proximal and distal margins negative 4 out of 10 lymph nodes involved PT 3, PN 1 M0 grade 3 No evidence of metastasis by a noncontrast CT on 12/29/2016. If necessary may consider further imaging - Constitutional Vitals: Vital Signs Temp Pulse Resp BP Pulse Ox 01/02/17 10:35 98.7 F 72 16 109/80 98 01/02/17 07:25 97.9 F 73 17 97/58 97 01/02/17 00:08 98.0 F 88 14 121/81 97 01/01/17 20:19 98.1 F 75 14 137/87 100 Intake and Output 01/01/17 01/02/17 01/02/17 23:59 07:59 15:59 Intake Total 0 / 0 1510 / 1510 1460 / 1460 Output Total 950 / 950 1300 / 1300 700 / 700 Balance -950 / -950 210 / 210 760 / 760 Intake: IV Fluids 1250 / 1250 1460 / 1460 Clinimix E 5%-15% 744 / 744 SOLUTION 2,000 ML @ 50 mls/hr IV .Q24H [facility] with M.v.i. Adult 10 ml Rx#: [id number] 0.9 % Sodium Chloride 1, 1000 / 1000 716 / 716 000 ML @ 60 mls/hr IVC . [id number] [facility] Rx#: [id number] Intralipid 20% 250 ML @ 250 / 250 21 mls/hr IVPB DAILY@1700 [facility] Rx#:[id number] Oral 0 / 0 0 / 0 0 / 0 Other 260 / 260 Output: Urine 100 / 100 450 / 450 0 / 0 Gastric Drainage 850 / 850 850 / 850 700 / 700 Right Nare 850 / 850 Other: Meal NPO Blood Glucose* 144 129 118 Oncology: Obj Data - Labs CBC & Chem 7: 01/02/17 09:00 01/02/17 03:10 Labs: Laboratory Results - last 24 hr 01/01/17 01/01/17 01/02/17 15:24 20:14 00:05 WBC RBC Hgb Hct MCV MCH MCHC RDW Plt Count MPV Immature Gran % Seg Neutrophils % Lymphocytes % Monocytes % Eosinophils % Basophils % Neutrophils # Lymphocytes # Monocytes # Eosinophils # Basophils # Sodium Potassium Chloride Carbon Dioxide BUN Creatinine Est GFR ( Amer) Est GFR (Non-Af Amer) BUN/Creatinine Ratio Glucose POC Glucose 99 H 144 H 89 Calculated Osmolality Calcium Phosphorus Magnesium 01/02/17 01/02/17 01/02/17 03:10 07:33 09:00 WBC 7.6 RBC 3.96 L Hgb 11.4 L Hct 34.9 L MCV 88.1 MCH 28.8 MCHC 32.7 RDW 14.0 Plt Count 190 MPV 10.3 Immature Gran % 0.3 Seg Neutrophils % 63.7 Lymphocytes % 22.4 Monocytes % 8.6 Eosinophils % 4.5 Basophils % 0.5 Neutrophils # 4.9 Lymphocytes # 1.7 Monocytes # 0.7 Eosinophils # 0.3 Basophils # 0.0 Sodium 139 Potassium 4.3 D Chloride 108 Carbon Dioxide 23 BUN 15 Creatinine 0.62 L Est GFR ( Amer) > 60 Est GFR (Non-Af Amer) > 60 BUN/Creatinine Ratio 24 Glucose 95 POC Glucose 129 H Calculated Osmolality 289 Calcium 8.1 L Phosphorus 4.3 D Magnesium 2.2 01/02/17 11:47 WBC RBC Hgb Hct MCV MCH MCHC RDW Plt Count MPV Immature Gran % Seg Neutrophils % Lymphocytes % Monocytes % Eosinophils % Basophils % Neutrophils # Lymphocytes # Monocytes # Eosinophils # Basophils # Sodium Potassium Chloride Carbon Dioxide BUN Creatinine Est GFR ( Amer) Est GFR (Non-Af Amer) BUN/Creatinine Ratio Glucose POC Glucose 118 H Calculated Osmolality Calcium Phosphorus Magnesium
[2017-01-02] MEDS: 0.9 % Sodium Chloride 1,000 ML IVC SCH ×3 (02:29→21:12)
[2017-01-02 03:33] LABS: BUN/Creatinine Ratio 24 (6-26); Blood Urea Nitrogen 15 mg/dL (8-26); Calcium 8.1 mg/dL (8.6-10.8); Carbon Dioxide 23 mEq/L (19-29); Chloride 108 mEq/L (98-109); Glucose 95 mg/dL (70-99); Magnesium 2.2 mg/dL (1.6-2.6); Osmolality,Calculated 289 (280-300); Potassium 4.3 mEq/L (3.5-4.5); Sodium 139 mEq/L (136-145); eGFR For African Americans > 60 (> 60); eGFR For Non-African Americans > 60 (> 60)
[2017-01-02 03:39] LABS: Phosphorous 4.3 mg/dL (2.3-4.7)
[2017-01-02] MEDS: Pantoprazole 40 MG VIAL IVP SCH ×2 (05:46→16:46)
[2017-01-02] MEDS: Nicotine 21 MG PATCH.TD24 TD SCH (08:05)
[2017-01-02 09:11] LABS: Basophils % 0.5 %; Eosinophils # 0.3 K/mcL (0.0-0.6); Eosinophils % 4.5 %; Hematocrit 34.9 % (37.5-50.1); Hemoglobin 11.4 g/dL (12.9-16.9); Immature Granulocytes % 0.3 % (0-4); Lymphocytes # 1.7 K/mcL (0.6-4.6); Lymphocytes % 22.4 %; Mean Corpuscular HGB Conc 32.7 g/dL (31.6-35.5); Mean Corpuscular Hemoglobin 28.8 pg (28.0-33.3); Mean Corpuscular Volume 88.1 fL (83.0-100.0); Mean Platelet Volume 10.3 fL (9.4-12.4); Monocytes # 0.7 K/mcL (0.0-1.3); Monocytes % 8.6 %; Neutrophils # 4.9 K/mcL (1.6-8.9); Platelet Count 190 K/mcL (140-400); Red Blood Count 3.96 M/mcL (4.19-5.50); Segmented Neutrophils % 63.7 %
--- NOTE | 2017-01-02 14:31 | General Surgery Progress Note ---
Date of Encounter: 01/02/17 Time of Encounter: 14:27 - Assessment and Plan (1) History of gastric cancer Current Visit: No Status: Resolved s/p EGD with Dr. Alonso with biopsies Pathology- consistent with adenocarcinoma Recommend transfer [facility]- discussed with hospitalist Continue NPO with NG tube to LIWS May have ice chips Supportive care/pain control Continue TPN therapy (2) Protein calorie malnutrition Current Visit: Yes Status: Chronic Continue TPN therapy (3) Early satiety Current Visit: No Status: Chronic (4) Nausea & vomiting Current Visit: No Status: Acute NG tube to LIWS Qualifiers: Vomiting type: unspecified Vomiting Intractability: non-intractable Qualified Code(s): R11.2 - Nausea with vomiting, unspecified Subjective Patient reports: no new complaints, still having pain, voiding w/o difficulty, afebrile Objective Vital Signs - Last 8 Hours Temp Pulse Resp BP Pulse Ox 01/02/17 10:35 98.7 F 72 16 109/80 98 01/02/17 07:25 97.9 F 73 17 97/58 97 Intake and Output 01/01/17 01/02/17 01/02/17 23:59 07:59 15:59 Intake Total 0 / 0 1510 / 1510 1460 / 1460 Output Total 950 / 950 1300 / 1300 700 / 700 Balance -950 / -950 210 / 210 760 / 760 Intake: IV Fluids 1250 / 1250 1460 / 1460 Clinimix E 5%-15% 744 / 744 SOLUTION 2,000 ML @ 50 mls/hr IV .Q24H [facility] with M.v.i. Adult 10 ml Rx#: [id number] 0.9 % Sodium Chloride 1, 1000 / 1000 716 / 716 000 ML @ 60 mls/hr IVC . [id number] [facility] Rx#: [id number] Intralipid 20% 250 ML @ 250 / 250 21 mls/hr IVPB DAILY@1700 [facility] Rx#:[id number] Oral 0 / 0 0 / 0 0 / 0 Other 260 / 260 Output: Urine 100 / 100 450 / 450 0 / 0 Gastric Drainage 850 / 850 850 / 850 700 / 700 Right Nare 850 / 850 Other: Meal NPO Percent of Meal Consumed 0% Blood Glucose* 144 129 118 - General physical appearance well developed, no distress, cachectic, chronically ill - Eyes normal ocular movement - ENT dry mucosa, atraumatic, normocephalic - Neck Neck exam: trachea midline - Respiratory normal respiratory effort - Cardiovascular Cardiovascular exam: Present: RRR - Abdomen Abdomen: Present: bowel sounds present, soft, scaphoid, wound (NG tube to LIWS) - Neurologic CN 2-12 grossly intact - Psychiatric oriented to time, oriented to person, oriented to place, speech is normal, memory intact - Labs 01/02/17 09:00 01/02/17 03:10 Diabetes panel 01/02/17 Range/Units 03:10 Sodium 139 (136-145) mEq/L Potassium 4.3 D (3.5-4.5) mEq/L Chloride 108 (98-109) mEq/L Carbon Dioxide 23 (19-29) mEq/L BUN 15 (8-26) mg/dL Creatinine 0.62 L (0.72-1.25) mg/dL Glucose 95 (70-99) mg/dL Calcium 8.1 L (8.6-10.8) mg/dL Calcium panel 01/02/17 Range/Units 03:10 Calcium 8.1 L (8.6-10.8) mg/dL Phosphorus 4.3 D (2.3-4.7) mg/dL Pituitary panel 01/02/17 Range/Units 03:10 Sodium 139 (136-145) mEq/L Potassium 4.3 D (3.5-4.5) mEq/L Chloride 108 (98-109) mEq/L Carbon Dioxide 23 (19-29) mEq/L BUN 15 (8-26) mg/dL Creatinine 0.62 L (0.72-1.25) mg/dL Glucose 95 (70-99) mg/dL Calcium 8.1 L (8.6-10.8) mg/dL Adrenal panel 01/02/17 Range/Units 03:10 Sodium 139 (136-145) mEq/L Potassium 4.3 D (3.5-4.5) mEq/L Chloride 108 (98-109) mEq/L Carbon Dioxide 23 (19-29) mEq/L BUN 15 (8-26) mg/dL Creatinine 0.62 L (0.72-1.25) mg/dL Glucose 95 (70-99) mg/dL Calcium 8.1 L (8.6-10.8) mg/dL - VTE Documentation of Mechanical Device: Intermittent pneumatic compression device Consult Discharge Plan - Plan Referrals: Mercedez,Silver Silver MD [Non-Partnered Physician] - 01/10/17 2:45 pm - Attending Attestation I examined this patient and my medical decision-making was reviewed with the HYDRAULIC JACK OPERATOR/PA/Advanced Practice Nurse/Resident Physician. I agree with the documented findings, disposition and treatment plan as described except to the extent set forth below.
[2017-01-02] MEDS ORDERED: Clinimix E 5%-15% SOLUTION 2,000 ML with MVI, adult with vitamin K 10 ML IV SCH (17:00)
--- NOTE | 2017-01-02 17:54 | Discharge Summary ---
Date of Encounter: 01/02/17 Time of Encounter: 17:48 - Discharge Diagnosis (1) Partial small bowel obstruction Priority: Primary Status: Acute (2) Severe protein-calorie malnutrition Priority: Secondary Status: Acute (3) History of gastric cancer Priority: Secondary Status: Resolved (4) Elevated white blood cell count Priority: Secondary Status: Acute Qualifiers: Leukocytosis type: unspecified Qualified Code(s): D72.829 - Elevated white blood cell count, unspecified - Discharge Medications Home Medications: Mirtazapine [Remeron] 15 mg PO HS #30 tablet 12/15/16 [Rx] Omeprazole 20 mg PO DAILY 30 Days 12/15/16 [Rx] Allergies/Adverse Reactions: Allergies No Known Allergies Allergy (Verified 12/28/16 22:45) Date of admission: 12/29/16 09:13 Primary care physician: PCP NO Consults: 12/29/16 11:07 Consult to Surgery [CONS] Routine Consulting Provider: Gael Bedolla Reason for Consult: SBO Time Notified: 11:07 Call Completed: Yes 12/29/16 11:08 Consult to Oncology [CONS] Routine Consulting Provider: Oncology [facility] Reason for Consult: history of stomach CA Time Notified: 11:09 Call Completed: Yes 12/29/16 15:13 PICC Consult [Consult to Invasive Line Access Team] [CONS] Stat Reason for Consult: TPN Line Type: PICC PICC line indications: Parental nutrition 12/29/16 15:14 Consult to Nutrition [CONS] Stat Comment: Consulting Provider: NUTRITION Reason for Dietary Consult: TPN Start and Manage 12/29/16 16:14 Consult to Invasive Line Access Team [CONS] Routine Reason for Consult: Picc Line Insertion Line Type: PICC Discharging clinician: Carl Briceno Anticipated date of discharge: 01/02/17 - Patient Status Disposition: Transfer Critical Access Hosp Condition: Fair Functional capacity at discharge: independent ambulation Overall status at discharge: patient is not back to baseline - Discharge Instructions Follow Up With: Silver Newsome MD [Non-Partnered Physician] - - Diet and Activity Activity: as per physical therapy Diet: other (NPO with ice chips) Interval History: Mr. Chand is a 41 year old male The patient reported back to the ED last evening with a 24 hour history of LUQ pain with associated nausea/vomiting and obstipation for 2 days He states that he has not had an EGD or follow-up since completion of his chemotherapy/radiation [address] of the abdomen and pelvis without contrast 12/28/2016 showed suspicious for partial small bowel obstruction left lower quadrant. Possible mild infectious small airway disease. Nonobstructive renal stones without hydronephrosis Elevated neutrophil count of 16,000. Rest of CBC normal. CMP unremarkable. EGD by Dr. Alonso 12/30/2016 showed diffuse hemorrhagic gastritis biopsy is done. Also superficial ulcers in the esophagus. HE was placed on NG suction, NPO , IVF with TPN support. jayant has remained hemodynamically stable, biopsy of the gastric mucosa is positive for adenocarcinoma. jayant is recommended by general surgery to be trasnferred to [facility] for further evluation for being a possible surgical candidate or for further chemotherapy. This has been discussed with the patient and he agrees for the transfer. he is bieng transferred in stable condition with the TPN. Past Medical history Gastric cancer post partial gastrectomy about 8 years ago [facility] apparently had gastrojejunostomy He was admitted on 12/14/16 with a 2 weeks of nausea and vomiting that has progressed to becoming bilious. He has had unintentional weight loss over the pass 3 years and has lost at least 50 lb. in the last 6 months. Small bowel follow-through demonstrated no evidence of small bowel obstruction or ileus during recent admission. Contrast was able to reach the colon within 30 minutes. The patient was fed and tolerated diet. He was discharged to home and outpatient follow-up was recommended for EGD. Hospital course: Mr. Chand is a 41 year old male Time spent discussing smoking cessation with patient: more than 10 minutes - Time Spent with Patient Total time spent providing and/or coordinating discharge services: Greater than 30 minutes - Constitutional Vitals: Temp Pulse Resp BP Pulse Ox 98.3 F 90 16 140/98 93 L 01/02/17 16:04 01/02/17 16:04 01/02/17 16:04 01/02/17 16:04 01/02/17 16:04 General appearance: Present: A&O X 3 Exam: Neck supple. Appears dry, mucous membranes are moist Chest bilateral clear, no added sounds. CVS S1-S2, no murmurs rubs or gallops. Abdomen soft, scaphoid, nontender, bowel sounds are sluggish Extremities no edema. Neuro no focal deficits. - VTE Documentation of Mechanical Device: Intermittent pneumatic compression device
[2017-01-02] MEDS ORDERED: *HR* Heparin 5,000 UNIT/ML VIAL SQ SCH (18:00)
[2017-01-02 21:31] VITALS: BP 134/85
--- NOTE | 2017-01-03 09:02 | Oncology Inp Progress Note ---
Date of Encounter: 01/02/17 Time of Encounter: 08:59 (1) Small bowel obstruction Status: Acute Assessment and plan: Currently on TPN. Also NG tube to suction. Biopsy results showed adenocarcinoma (2) History of gastric cancer Status: Resolved Assessment and plan: Post gastrojejunostomy after partial gastrectomy 2. Pathology report from 03/25/2009 at [facility] Distal stomach resection. Poorly differentiated intestinal type. Focal areas of mucinous differentiation percent Tumor penetrates the serosa Lymphatic invasion present but no large vessel invasion proximal and distal margins negative 4 out of 10 lymph nodes involved PT 3, PN 1 M0 grade 3 HER-2 testing at that time negative at 0 No evidence of metastasis by a noncontrast CT on 12/29/2016. 3. Current gastric lesion biopsies showed adenocarcinoma. He is been transferred to [facility] for further management. He may need MRI dimension or PET scan to make sure there are no other evidence of metastasis Oncology: Subj Interval history: Biopsy from the gastric lesion showed adenocarcinoma. Still on NG tube and TPN - Constitutional Vitals: Vital Signs Temp Pulse Resp BP Pulse Ox 01/02/17 21:21 98.2 F 63 16 134/85 99 01/02/17 16:04 98.3 F 90 16 140/98 93 L 01/02/17 10:35 98.7 F 72 16 109/80 98 Intake and Output 01/02/17 01/03/17 01/03/17 23:59 07:59 15:59 Intake Total 1000 / 1000 Output Total 1275 / 1275 Balance -275 / -275 Intake: IV Fluids 1000 / 1000 0.9 % Sodium Chloride 1, 1000 / 1000 000 ML @ 60 mls/hr IVC . [id number] [facility] Rx#: [id number] Oral 0 / 0 Output: Urine 275 / 275 Gastric Drainage 1000 / 1000 Other: Meal NPO Blood Glucose* 109 Exam: GENERAL: Alert and oriented, well appearing. Mental Status: Affect appropriate for circumstances HEENT: Sclerae anicteric. No mucositis or thrush. No other oral or pharyngeal lesions or erythema. Skin: No rashes or petechiae. No evidence of skin malignancy Lymph nodes: No cervical, supraclavicular, axillary, or inguinal adenopathy. Lungs: Clear to auscultation and percussion bilaterally. Cardiovascular: Regular rate and rhythm. No gallops, murmurs, or rubs. Abdomen: Diffuse tenderness no distention. Not passing gas. Extremities: No edema. No calf swelling or tenderness. No joint deformity. Neurologic: Alert, cranial nerves II-XII intact; normal gait; no focal weakness or sensory abnormalities Oncology: Obj Data - Labs CBC & Chem 7: 01/02/17 09:00 01/02/17 03:10 Labs: Laboratory Results - last 24 hr 12/31/16 01/02/17 01/02/17 21:13 09:00 11:47 WBC 7.6 RBC 3.96 L Hgb 11.4 L Hct 34.9 L MCV 88.1 MCH 28.8 MCHC 32.7 RDW 14.0 Plt Count 190 MPV 10.3 Immature Gran % 0.3 Seg Neutrophils % 63.7 Lymphocytes % 22.4 Monocytes % 8.6 Eosinophils % 4.5 Basophils % 0.5 Neutrophils # 4.9 Lymphocytes # 1.7 Monocytes # 0.7 Eosinophils # 0.3 Basophils # 0.0 POC Glucose 112 H 118 H 01/02/17 01/02/17 16:37 21:26 WBC RBC Hgb Hct MCV MCH MCHC RDW Plt Count MPV Immature Gran % Seg Neutrophils % Lymphocytes % Monocytes % Eosinophils % Basophils % Neutrophils # Lymphocytes # Monocytes # Eosinophils # Basophils # POC Glucose 91 H 109 H Consult Discharge Plan - Plan Referrals: Silver Newsome MD [Non-Partnered Physician] - 01/10/17 2:45 pm
== END 2017-01-02 22:39 | disposition other institution (70) | DRG 388 ==
LOC: EMEROO 22:43 → 3ANU 22:43 → SUATTDRO 12-29 09:13
PROVIDERS: ADMIT Hospitalist; ATTEND Internal Medicine Endocrinology, Diabetes & Metabolism
PROC: ENDOEBX (2016-12-30 12:00)